=== PATIENT | female | born 1965 | race Asian ===

== ENCOUNTER 2017-09-29 10:21 | Inpatient (IN) | payer SELFPAY ==
[~2017-09-29] VITALS: Ht 149.9 cm; Wt 43.6 kg
[2017-09-29] VITALS (13 sets, daily range): BP systolic 136–163; BP diastolic 75–93; PULSE 68–96; RESP 15–20; TEMP 97.7–98.8; O2SAT 97–100
[2017-09-29] MEDS: SODIUM CHLOR 0.9% 1000 ML INJ 1,000 ML IV SCH ×2 (00:45→13:43)
[2017-09-29] MEDS ORDERED: [UNRECOGNIZED DRUG - CODE] PO (10:45)
[2017-09-29 10:53] LABS: AUTOMATED NEUTROPHIL # 3.7 TH/MM3 (1.8-7.7); BASOPHIL % 0.8 % (0.0-2.0); EOSINOPHIL % 0.4 % (0.0-4.0); HEMATOCRIT 43.2 % (35.0-46.0); HEMOGLOBIN 14.2 GM/DL (11.6-15.3); LYMPH % 25.3 % (9.0-44.0); LYMPHOCYTE # 1.4 TH/MM3 (1.0-4.8); MEAN CELL VOLUME 90.7 FL (80.0-100.0); MEAN CORPUSCULAR HEMOGLOBIN 29.9 PG (27.0-34.0); MEAN PLATELET VOLUME 7.1 FL (7.0-11.0); MONO % 4.7 % (0.0-8.0); MONOCYTE # 0.3 TH/MM3 (0-0.9); NEUT % 68.8 % (16.0-70.0); PLATELET COUNT 280 TH/MM3 (150-450); RED BLOOD COUNT 4.77 MIL/MM3 (4.00-5.30); RED CELL DISTRIBUTION WIDTH 12.7 % (11.6-17.2); WHITE BLOOD COUNT 5.4 TH/MM3 (4.0-11.0)
[2017-09-29 11:00] LABS: CHLORIDE 103 MEQ/L (98-107); SODIUM (NA) 139 MEQ/L (136-145)
[2017-09-29 11:03] LABS: BICARBONATE 28.4 MEQ/L (21.0-32.0); BLOOD UREA NITROGEN 12 MG/DL (7-18); CALCIUM 8.1 MG/DL (8.5-10.1); GLUCOSE,RANDOM 129 MG/DL (74-106)
[2017-09-29 11:07] LABS: CREATININE 0.64 MG/DL (0.50-1.00); GLOMERULAR FILTRATION RATE 97 ML/MIN (>89)
[2017-09-29 11:08] LABS: PROTHROMBIN TIME - PATIENT 10.2 SEC (9.8-11.6)
[2017-09-29 11:11] LABS: TROPONIN I LESS THAN 0.02 NG/ML (0.02-0.05)
--- NOTE | 2017-09-29 11:28 | PD ---
HPI Chief Complaint: Neuro Symptoms/ Deficits Time Seen by Provider: 10:31 Travel History International Travel<30 days: No Contact w/Intl Traveler<30days: No Traveled to known affect area: No History of Present Illness HPI 52-year-old female arrives with weakness in the left arm and left leg. She felt paresthesias in the left hand last night prior to going to sleep which was about 11 or 11:30. The patient then woke up at approximately 6 AM, 4 hours prior to ER arrival with a complaint of weakness in the left hand and left leg. She was able to ambulate however it was difficult due to the weakness in the leg. She reports a mild right sided headache which started yesterday and persisted into today. No loss of consciousness or visual complaint offered. No chest pain shortness breath nausea vomiting or dizziness. Patient denies history of CVA previously. She has a history of hypertension. She reports significant personal stress lately due to financial and family related concerns. PFSH Past Medical History Hypertension: Yes Tetanus Vaccination: < 5 Years Influenza Vaccination: Yes ?: Not Past Surgical History Cholecystectomy: Yes Social History Alcohol Use: Yes (SOCIAL) Tobacco Use: No Substance Use: No Allergies-Medications (Allergen,Severity, Reaction): Coded Allergies: Iodinated Contrast- Oral and IV Dye (Verified Allergy, Severe, Itching, ) Reported Meds & Prescriptions Reported Meds & Active Scripts Active Reported Exforge Hct (Wqvpuxfvnn-Nyhelyjnx-Lzysgyypuphcovmwszw) 10-320-25 Mg Tab 1 Tab PO DAILY Review of Systems Except as stated in HPI: all other systems reviewed are Neg General / Constitutional: No: Fever Neurologic: Positive: Weakness Physical Exam Narrative GENERAL: 52 yo F, WNWD, mild anxiety Vital Signs Date Time Temp Pulse Resp B/P (MAP) Pulse Ox O2 Delivery O2 Flow Rate FiO2 09/29/17 10:42 (114) 09/29/17 10:34 97.7 87 16 163/90 (114) 98 Room Air 09/29/17 10:34 98 Room Air 09/29/17 10:34 Room Air SKIN: Warm and dry. HEAD: Atraumatic. Normocephalic. EYES: Pupils equal and round. No scleral icterus. No injection or drainage. ENT: No nasal bleeding or discharge. Mucous membranes pink and moist. NECK: Trachea midline. No JVD. CARDIOVASCULAR: Rhythm is regular. The is about 90. RESPIRATORY: No accessory muscle use. Clear to auscultation. Breath sounds equal bilaterally. GASTROINTESTINAL: Abdomen soft, non-tender, nondistended. Hepatic and splenic margins not palpable. MUSCULOSKELETAL: Extremities without clubbing, cyanosis, or edema. No obvious deformities. NEUROLOGICAL: Awake and alert. Left upper extremity weakness 2 over 5. Left lower extremity 4 over 5. Perhaps trace facial droop is appreciable on the left side. Speech is normal. Memory and mentation are both normal. PSYCHIATRIC: Appropriate mood and affect; insight and judgment normal. Data Data Last Documented VS Vital Signs Date Time Temp Pulse Resp B/P (MAP) Pulse Ox O2 Delivery O2 Flow Rate FiO2 09/29/17 13:00 76 155/93 (113) 98 09/29/17 11:47 16 Room Air 09/29/17 10:34 97.7 Orders Orders Electrocardiogram (09/29/17 10:31) Prothrombin Time / Inr (Pt) (09/29/17 10:31) Act Partial Throm Time (Ptt) (09/29/17 10:31) Complete Blood Count With Diff (09/29/17 10:31) Basic Metabolic Panel (Bmp) (09/29/17 10:31) Creatine Kinase (Cpk) (09/29/17 10:31) Drug Screen, Random Urine (09/29/17 10:31) Troponin I (09/29/17 10:31) Urinalysis - C+S If Indicated (09/29/17 10:31) Ct Brain W/O Iv Contrast(Rout) (09/29/17 10:31) Cta Brain W Iv Contrast W 3d (09/29/17 10:31) Cta Neck W Iv Contrast W 3d (09/29/17 10:31) Chest, Single Ap (09/29/17 10:31) Ecg Monitoring (09/29/17 10:31) Iv Access Insert/Monitor (09/29/17 10:31) Oximetry (09/29/17 10:31) Admit Order (Ed Use Only) (09/29/17 ) Automated Cutting Machine Operator / Telemetry CHAITANYA.Q8H (09/29/17 13:15) Vital Signs (Adult) Q4H (09/29/17 13:15) Diet Npo (09/29/17 Lunch) Activity Bed Rest (09/29/17 13:15) Notify Dr: Other (09/29/17 13:15) Labs Laboratory Tests Test 09/29/17 10:35 09/29/17 12:35 White Blood Count 5.4 TH/MM3 Red Blood Count 4.77 MIL/MM3 Hemoglobin 14.2 GM/DL Hematocrit 43.2 % Mean Corpuscular Volume 90.7 FL Mean Corpuscular Hemoglobin 29.9 PG Mean Corpuscular Hemoglobin Concent 33.0 % Red Cell Distribution Width 12.7 % Platelet Count 280 TH/MM3 Mean Platelet Volume 7.1 FL Neutrophils (%) (Auto) 68.8 % Lymphocytes (%) (Auto) 25.3 % Monocytes (%) (Auto) 4.7 % Eosinophils (%) (Auto) 0.4 % Basophils (%) (Auto) 0.8 % Neutrophils # (Auto) 3.7 TH/MM3 Lymphocytes # (Auto) 1.4 TH/MM3 Monocytes # (Auto) 0.3 TH/MM3 Eosinophils # (Auto) 0.0 TH/MM3 Basophils # (Auto) 0.0 TH/MM3 CBC Comment DIFF FINAL Differential Comment Prothrombin Time 10.2 SEC Prothromb Time International Ratio 1.0 RATIO Activated Partial Thromboplast Time 26.2 SEC Blood Urea Nitrogen 12 MG/DL Creatinine 0.64 MG/DL Random Glucose 129 MG/DL Calcium Level 8.1 MG/DL Sodium Level 139 MEQ/L Potassium Level 3.1 MEQ/L Chloride Level 103 MEQ/L Carbon Dioxide Level 28.4 MEQ/L Anion Gap 8 MEQ/L Estimat Glomerular Filtration Rate 97 ML/MIN Total Creatine Kinase 88 U/L Troponin I LESS THAN 0.02 NG/ML Urine Collection Type CATH Urine Color YELLOW Urine Turbidity CLEAR Urine pH 7.5 Urine Specific [place] 1.010 Urine Protein NEG mg/dL Urine Glucose (UA) NEG mg/dL Urine Ketones NEG mg/dL Urine Occult Blood SMALL Urine Nitrite NEG Urine Bilirubin NEG Urine Urobilinogen 0.2 MG/DL Urine Leukocyte Esterase NEG Urine Squamous Epithelial Cells 0-5 /hpf Urine Amorphous Sediment FEW Microscopic Urinalysis Comment CULT NOT INDICATED Urine Opiates Screen NEG Urine Barbiturates Screen NEG Urine Amphetamines Screen NEG Urine Benzodiazepines Screen NEG Urine Cocaine Screen NEG Urine Cannabinoids Screen NEG MDM Medical Decision Making Medical Screen Exam Complete: Yes Emergency Medical Condition: Yes Medical Record Reviewed: Yes Differential Diagnosis CVA, TIA, syncope, complex migraine, Giovany's paralysis Narrative Course EKG: sinus, rate 83, right axis deviation CBC & BMP Diagram 09/29/17 10:35 Calcium Level 8.1 L Last Impressions Head CT 09/29/17 1031 Signed Impressions: Service Date/Time: Friday, September 29, 2017 11:36 - CONCLUSION: Multifocal parenchymal hemorrhages. Stanton Greenberg MD Chest X-Ray 09/29/17 1031 Signed Impressions: Service Date/Time: Friday, September 29, 2017 10:52 - CONCLUSION: No acute disease. Stanton Greenberg MD Multifocal cortical hemorrhages observed on CT. The patient will be admitted to the [facility]. Case d/w Dr Ellen Denise PA, who requests admission to [facility] at [facility]. Case d/w Dr Calhoun of the research associate quality control qc service The patient returned from her CT angiograms and complained of a cough and also worsening headache with coughing. Neurologic status remained unchanged. A very small dose of Dilaudid 0.5 along with Zofran was administered. Benadryl also administered. On exam at the time of the complaint of coughing the patient had a widely patent oropharynx and was without respiratory compromise. Critical Care Narrative Aggregate critical care time was 35 minutes. Time to perform other separately billable procedures was not included in the critical care time. My time did not include minutes spent treating any other patients simultaneously or on activities that did not directly contribute to the patient's treatment. The services I provided to this patient were to treat and/or prevent clinically significant deterioration that could result in: Permanent deficit, intracranial hemorrhage I provided critical care services requiring my management, as noted below: Chart data review, documentation time, medication orders and management, vital sign assessments/reviewing monitor data, ordering and reviewing lab tests, ordering and interpreting/reviewing x-rays and diagnostic studies, care of the patient and discussion of the patient with the admitting physicians. Diagnosis Primary Impression: Intracranial hemorrhage Additional Impressions: Cephalgia Qualified Codes: R51 - Headache Hemorrhagic stroke Admitting Information Admitting Physician Requests: Admit Mike Sauceda MD Sep 29, 2017 11:28
--- NOTE | 2017-09-29 11:54 | RADRPT ---
EXAM DATE/TIME: 09/29/2017 11:36 [facility] COMPARISON: No previous studies available for comparison. INDICATIONS : Left hand and leg weakness. Evaluate for cerebrovascular accident. RADIATION DOSE: 64.20 CTDIvol (mGy) MEDICAL HISTORY : None SURGICAL HISTORY : Hysterectomy. Cholecystectomy. ENCOUNTER: Initial ACUITY: 1 day PAIN SCALE: 0/10 LOCATION: cranial TECHNIQUE: Multiple contiguous axial images were obtained of the head. Using automated exposure control and adj ustment of the mA and/or kV according to patient size, radiation dose was kept as low as reasonably a chievable to obtain optimal diagnostic quality images. DICOM format image data is available electro nically for review and comparison. FINDINGS: There is a nearly 4 cm parenchymal hematoma in the right lentiform nucleus. A 7 mm hemorrhagic focus is present adjacent to the left caudate head. There is mild right lateral ventricular compression and hemispheric sulcal effacement on the right related to the larger hematoma. Minimal subfalcine shift is appreciated. There is minimal asymmetric effacement of the coronal cistern on the right. Elsewhere, there is patchy mild diminished attenuation in periventricular white matter which is likel y chronic and benign. The posterior fossa and brainstem are focally unremarkable. The extracranial structures are benign and intact. CONCLUSION: Multifocal parenchymal hemorrhages. Stanton Greenberg MD on September 29, 2017 at 11:46 Board Certified Radiologist. This report was verified electronically.
--- NOTE | 2017-09-29 12:07 | RADRPT ---
EXAM DATE/TIME: 09/29/2017 10:52 [facility] COMPARISON: No previous studies available for comparison. INDICATIONS : Left sided weakness. MEDICAL HISTORY : Hypertension. SURGICAL HISTORY : Cholecystectomy. ENCOUNTER: Initial ACUITY: 1 day PAIN SCORE: 0/10 LOCATION: Bilateral chest FINDINGS: A single view of the chest demonstrates the lungs to be symmetrically aerated without evidence of mas s, infiltrate or effusion. The cardiomediastinal contours are unremarkable. Osseous structures are intact. CONCLUSION: No acute disease. Stanton Greenberg MD on September 29, 2017 at 11:51 Board Certified Radiologist. This report was verified electronically.
[2017-09-29 12:56] LABS: BILIRUBIN, URINE NEG (NEG); BLOOD, URINE SMALL (NEG); GLUCOSE,URINE NEG (NEG); KETONE, URINE NEG (NEG); NITRITE,URINE NEG (NEG); PH, URINE 7.5 (5.0-8.5); URINE COLOR YELLOW (YELLW/STRAW); URINE LEUKOCYTE ESTERASE NEG (NEG)
[2017-09-29 13:30] LABS: AMORPHOUS SEDIMENT, URINE FEW; SQUAMOUS EPITHELIAL CELL URINE 0-5 /hpf (0-5)
[2017-09-29] MEDS ORDERED: IOHEXOL 350 MG/ML 10 ML VIAL (for RAD DIAG) IVCONTRAST ONE (13:37)
[2017-09-29] MEDS ORDERED: HYDROmorphone HCL PF 2 MG/ML VIAL IV PUSH ONE (13:45)
[2017-09-29] MEDS ORDERED: diphenhydrAMINE HCL 50 MG/ML VIAL IV PUSH ONE (13:45)
[2017-09-29] MEDS ORDERED: ONDANSETRON HCL 4 MG/2 ML VIAL IV PUSH ONE (13:45)
--- NOTE | 2017-09-29 14:25 | RADRPT ---
EXAM DATE/TIME: 09/29/2017 13:23 [facility] COMPARISON: CT BRAIN W/O CONTRAST, September 29, 2017, 11:36. INDICATIONS : Left sided weakness. Multifocal parenchymal hemorrhages. IV CONTRAST: 85 cc Omnipaque 350 (iohexol) IV ; Cumulative dose for multiple exams. RADIATION DOSE: 42.18 CTDIvol (mGy) ; Combined studies MEDICAL HISTORY : None SURGICAL HISTORY : Hysterectomy. Cholecystectomy. ENCOUNTER: Initial ACUITY: 1 day PAIN SCALE: 0/10 LOCATION: cranial Patient experienced a contrast reaction consisting of itching . Patient was treated with diphenhydramine (Benadryl) . TECHNIQUE: Volumetric scanning was performed using a multi-row detector CT scanner. The data was post processed with a variety of visualization algorithms including full volume maximum intensity projection, multi -planar sliding thin slab reformation, curved planar reformation, and surface rendering techniques. Using automated exposure control and adjustment of the mA and/or kV according to patient size, radiat ion dose was kept as low as reasonably achievable to obtain optimal diagnostic quality images. DICO M format image data is available electronically for review and comparison. FINDINGS: There is a cluster of coalescing veins in the left frontal region with common drainage to the left in ternal cerebral vein consistent with developmental venous anomaly. The appearance is most suggestive of venous angioma, however the location does correlate with a small focus of presumed hemorrhage mariah cent to the left caudate head. I do not see an associated enlarged artery or aneurysmal dilatation of vessels in this region. The vasculature elsewhere is normal. The [place] vessels are intact and unremarkable with no evidence of major vessel occlusion or stenosis. No aneurysm is appreciated. 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 No suspicious finding s on the right. Stanton Greenberg MD on September 29, 2017 at 14:15 Board Certified Radiologist. This report was verified electronically.
--- NOTE | 2017-09-29 14:42 | RADRPT ---
EXAM DATE/TIME: 09/29/2017 13:23 [facility] COMPARISON: No previous studies available for comparison. INDICATIONS : Left sided weakness. Multifocal parenchymal hemorrhages. IV CONTRAST: 85 cc Omnipaque 350 (iohexol) IV ; Cumulative dose for multiple exams. RADIATION DOSE: 42.18 CTDIvol (mGy) ; Combined studies MEDICAL HISTORY : None SURGICAL HISTORY : Hysterectomy. Cholecystectomy. ENCOUNTER: Initial ACUITY: 1 day PAIN SCALE: 7/10 LOCATION: neck Elevated flow velocities and ICA/CCA ratios have been found to correlate with increased degrees of vessel stenosis, calculated as percentage of diameter relative to a normal segment of distal ICA/CCA. Patient experienced a contrast reaction consisting of itching . Patient was treated with diphenhydramine (Benadryl) . TECHNIQUE: Volumetric scanning was performed using a multirow detector CT scanner. The data was post processed with a variety of visualization algorithms including full-volume maximum intensity projection, multip lanar sliding thin-slab reformation, curved-planar reformation, and surface-rendering techniques. Us ing automated exposure control and adjustment of the mA and/or kV according to patient size, radiatio n dose was kept as low as reasonably achievable to obtain optimal diagnostic quality images. DICOM f ormat image data is available electronically for review and comparison. FINDINGS: AORTIC ARCH: There is a three-vessel origin of the great vessels from the aorta. No evidence of ostial narrowing. RIGHT CAROTID: The common carotid artery is intact. The carotid bulb has a normal configuration without ulceration o r narrowing. The internal carotid artery lumen is smooth without stenosis. The external carotid kris ry is intact. LEFT CAROTID: The common carotid artery is intact. The carotid bulb has a normal configuration without ulceration or narrowing. The internal carotid artery lumen is smooth without stenosis. The external carotid ar luis is intact. VERTEBRALS: The vertebral arteries are patent bilaterally, left side dominant. No stenotic lesions are seen. CONCLUSION: Negative study Stanton Greenberg MD on September 29, 2017 at 14:38 Board Certified Radiologist. This report was verified electronically.
--- NOTE | 2017-09-29 16:37 | PD.CONS ---
[facility] Service neurosurg Consult Requested By [facility] Reason for Consult [facility] Primary Care Physician No Primary Care Physician History of Present Illness This is a 52-year-old lady with history of hypertension. She has apparently been off her medications for the last 2 months. She presented to [place] emergency department complaining of weakness over the left hand and left leg. She started feeling some numbness over the left upper extremity yesterday night before going to bed, and this morning upon awakening she felt increasing weakness over the left side, dropping things from her left hand and and having difficulty walking due to left leg weakness. In addition she had headaches with sensation of pressure and nauseas but no vomiting. She denies any prior episodes. She denies blurry vision, no photophobia, no vomiting. No loss of consciousness. No seizure activity. no tongue bitting. No incontinence of stool or urine. No prior history of stroke. In emergency department she underwent a CT head that showed multifocal parenchymal hemorrhages with the largest hematoma approximately 4 cm in the right basal ganglia.She was transferred to [facility] for neurosurgery evaluation. Left- sided weakness improving Review of Systems Constitutional: DENIES: Fever, Weight gain, Weight loss, Chills, Dizziness Eyes: DENIES: Blurred vision, Diplopia, Vision loss, Photosensitivity, Double Vision Ears, nose, mouth, throat: DENIES: Tinnitus, Vertigo, Throat pain Respiratory: DENIES: Cough, Wheezing, Shortness of breath Cardiovascular: DENIES: Chest pain, Palpitations, Syncope, Lower Extremity Edema Gastrointestinal: COMPLAINS OF: Nausea, DENIES: Abdominal pain, Vomiting Genitourinary: DENIES: Urinary frequency, Hematuria, Dysuria Hematologic/lymphatic: DENIES: Bruising Neurologic: COMPLAINS OF: Headache, Localized weakness, DENIES: Seizures Past Family Social History Allergies: Coded Allergies: Iodinated Contrast- Oral and IV Dye (Verified Allergy, Severe, Itching, ) Past Medical History Hypertension Past Surgical History Cholecystectomy Reported Medications Exforge Hct (Jxbhmzvxbk-Iycqhjsus-Hbuyzyuyxklqkbjxufi) 10-320-25 Mg Tab 1 Tab PO DAILY Active Ordered Medications Current Medications Diphenhydramine HCl (Benadryl Inj) 25 mg ONCE ONCE IV PUSH Last administered on 09/29/17at 13:38; Start 09/29/17 at 13:45; Stop 09/29/17 at 13:46; Status DC Iohexol (Omnipaque 350 Inj) 85 ml STK-MED ONCE IVCONTRAST Last administered on 09/29/17at 13:37; Start 09/29/17 at 13:37; Stop 09/29/17 at 13:38; Status DC Hydromorphone HCl (Dilaudid Pf Inj) 0.5 mg ONCE ONCE IV PUSH Last administered on 09/29/17at 13:44; Start 09/29/17 at 13:45; Stop 09/29/17 at 13:46 ; Status DC Ondansetron HCl (Zofran Inj) 4 mg ONCE ONCE IV PUSH Last administered on at 13:44; Start 09/29/17 at 13:45; Stop 09/29/17 at 13:46; Status DC Sodium Chloride 1,000 ml @ 100 mls/hr Q10H IV Last administered on 09/29/17at 13:43; Start 09/29/17 at 13:45 Acetaminophen (Tylenol) 650 mg Q6H PRN PO PAIN 1-5 AND/OR FEVER >100.4F; Start 09/29/17 at 16:45 Oxycodone/ Acetaminophen (Percocet 5-325 Mg) 1 tab Q4H PRN PO PAIN SCALE 5 TO 10; Start 09/29/17 at 16:45 Famotidine (Pepcid) 20 mg Q12HR PO ; Start 09/29/17 at 21:00 Albuterol/ Ipratropium (Duoneb Neb) 1 ampule Q4HR NEB PRN INH WHEEZING; Start 09/29/17 at 16:45 Miscellaneous Information 1 Q361D XX ; Start 09/29/17 at 16:45 Chlorhexidine Gluconate (Chlorhexidine 2% Cloth) 3 pack Taper DAILY@04 TOP ; Start 09/30/17 at 04:00; Stop 09/26/18 at 03:59 Chlorhexidine Gluconate (Chlorhexidine 2% Cloth) 3 pack UNSCH PRN TOP HYGIENIC CARE; Start 09/29/17 at 16:45 Senna/Docusate Sodium ([place]ula-Colace) 1 tab BID PO ; Start 09/29/17 at 21:00 Magnesium Hydroxide (Milk Of Magndaniel Liq) 30 ml Q12H PRN PO Mild constipation ; Start 09/29/17 at 16:45 Potassium Chloride 100 ml @ 50 mls/hr Q2H PRN IV For Potassium 2.8 - 3.2 mEq/L ; Start 09/29/17 at 16:45 Potassium Chloride 100 ml @ 50 mls/hr Q2H PRN IV For Potassium 2.8 - 3.2 mEq/L ; Start 09/29/17 at 16:45 Potassium Bicarb/ Potassium Chloride (K-Lyte Cl Eff) 50 meq UNSCH PRN PO For Potassium 3.3 - 3.5 mEq/L; Start 09/29/17 at 16:45 Potassium Chloride 100 ml @ 25 mls/hr UNSCH PRN IV For Potassium 3.3 - 3.5 mEq /L; Start 09/29/17 at 16:45 Potassium Chloride 100 ml @ 50 mls/hr Q2H PRN IV For Potassium 3.3 - 3.5 mEq/L ; Start 09/29/17 at 16:45 Magnesium Sulfate 4 gm/Sodium Chloride 100 ml @ 50 mls/hr UNSCH PRN IV For Magnesium 0.9 - 1.1 mg/dL; Start 09/29/17 at 16:45 Magnesium Oxide (Mag-Ox) 800 mg UNSCH PRN PO For Magnesium 1.2 - 1.6 mg/dL; Start 09/29/17 at 16:45 Magnesium Sulfate 2 gm/Sodium Chloride 100 ml @ 50 mls/hr UNSCH PRN IV For Magnesium 1.2 - 1.6 mg/dL; Start 09/29/17 at 16:45 Potassium Phosphate (K-Phos) 2,000 mg Q4H PRN PO For Phosphorus < 2.5 mg/dL; Start 09/29/17 at 16:45 Sodium Phosphate 30 mmol/Sodium Chloride 250 ml @ 42 mls/hr UNSCH PRN IV For Phosphorus < 2.5 mg/dL; Start 09/29/17 at 16:45 Potassium Phosphate (K-Phos) 2,000 mg UNSCH PRN PO/TUBE SEE LABEL COMMENTS; Start 09/29/17 at 16:45 Potassium Phosphate 30 mmol/ Sodium Chloride 260 ml @ 42 mls/hr UNSCH PRN IV SEE LABEL COMMENTS; Start 09/29/17 at 16:45 Family History Father and siblings with hypertension No family history of cancer or CAD Social History No tobacco, no drugs, occasional 1 glass of wine Physical Exam Vital Signs Vital Signs Date Time Temp Pulse Resp B/P (MAP) Pulse Ox O2 Delivery O2 Flow Rate FiO2 09/29/17 15:34 89 16 136/75 (95) 98 09/29/17 14:29 80 16 147/79 (101) 97 Room Air 09/29/17 13:56 Room Air 09/29/17 13:50 90 16 154/88 (110) 97 Room Air 09/29/17 13:00 76 155/93 (113) 98 09/29/17 11:47 77 16 154/84 (107) 99 Room Air 09/29/17 10:42 (114) 09/29/17 10:34 97.7 87 16 163/90 (114) 98 Room Air 09/29/17 10:34 98 Room Air 09/29/17 10:34 Room Air Physical Exam The patient is alert, awake and oriented to time, place and person. Speech is fluent. Cranial nerve examination: pupils to be equal, round and reactive to light. Extra-ocular movements are intact. Facial motor and sensory function are normal and symmetrical. Gross hearing appears intact. Sternocleidomastoid and trapezius muscles are symmetrical. Other cranial nerves are intact. Neck is soft and supple with a good range of motion without pain. Muscle strength is normal in all muscle groups of her right upper and lower extremities with mild left hemiparesis. Sensory examination is intact to light touch and pin prick in both the upper and lower extremities. Deep tendon reflexes are symmetrical in both upper and lower extremities. There is a bilateral plantar flexion response. Cerebellar examination is unremarkable, without deficits. Heart: regular rate, rhythm Resp: clear, no wheezes, nonlabored breathing Skin: warm, dry, no cyanosis or erythema Laboratory Laboratory Tests Test 09/29/17 10:35 09/29/17 12:35 White Blood Count 5.4 Red Blood Count 4.77 Hemoglobin 14.2 Hematocrit 43.2 Mean Corpuscular Volume 90.7 Mean Corpuscular Hemoglobin 29.9 Mean Corpuscular Hemoglobin Concent 33.0 Red Cell Distribution Width 12.7 Platelet Count 280 Mean Platelet Volume 7.1 Neutrophils (%) (Auto) 68.8 Lymphocytes (%) (Auto) 25.3 Monocytes (%) (Auto) 4.7 Eosinophils (%) (Auto) 0.4 Basophils (%) (Auto) 0.8 Neutrophils # (Auto) 3.7 Lymphocytes # (Auto) 1.4 Monocytes # (Auto) 0.3 Eosinophils # (Auto) 0.0 Basophils # (Auto) 0.0 CBC Comment DIFF FINAL Differential Comment Prothrombin Time 10.2 Prothromb Time International Ratio 1.0 Activated Partial Thromboplast Time 26.2 Blood Urea Nitrogen 12 Creatinine 0.64 Random Glucose 129 Calcium Level 8.1 Sodium Level 139 Potassium Level 3.1 Chloride Level 103 Carbon Dioxide Level 28.4 Anion Gap 8 Estimat Glomerular Filtration Rate 97 Total Creatine Kinase 88 Troponin I LESS THAN 0.02 Urine Collection Type CATH Urine Color YELLOW Urine Turbidity CLEAR Urine pH 7.5 Urine Specific [place] 1.010 Urine Protein NEG Urine Glucose (UA) NEG Urine Ketones NEG Urine Occult Blood SMALL Urine Nitrite NEG Urine Bilirubin NEG Urine Urobilinogen 0.2 Urine Leukocyte Esterase NEG Urine Squamous Epithelial Cells 0-5 Urine Amorphous Sediment FEW Microscopic Urinalysis Comment CULT NOT INDICATED Urine Opiates Screen NEG Urine Barbiturates Screen NEG Urine Amphetamines Screen NEG Urine Benzodiazepines Screen NEG Urine Cocaine Screen NEG Urine Cannabinoids Screen NEG Result Diagram: 09/29/17 1035 09/29/17 1035 Imaging Last 48 hours Impressions Neck CTA 09/29/17 1031 Signed Impressions: Service Date/Time: Friday, September 29, 2017 13:23 - CONCLUSION: Negative study Stanton Greenberg MD Head CTA 09/29/17 1031 Signed Impressions: Service Date/Time: Friday, September 29, 2017 13:23 - CONCLUSION: 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 No suspicious findings on the right. Stanton Greenberg MD Head CT 09/29/17 1031 Signed Impressions: Service Date/Time: Friday, September 29, 2017 11:36 - CONCLUSION: Multifocal parenchymal hemorrhages. Stanton Greenberg MD Chest X-Ray 09/29/17 1031 Signed Impressions: Service Date/Time: Friday, September 29, 2017 10:52 - CONCLUSION: No acute disease. Stanton Greenberg MD Attending Statement I reviewed her radiological studies Neck CTA 09/29/171030 Signed Impressions: Service Date/Time: Friday, September 29, 2017 13:23 - CONCLUSION: Negative study Stanton Greenberg MD Head CTA 09/29/171030 Signed Impressions: Service Date/Time: Friday, September 29, 2017 13:23 - CONCLUSION: 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 No suspicious findings on the right. Stanton Greenberg MD Head CT 09/29/171030 Signed Impressions: Service Date/Time: Friday, September 29, 2017 11:36 - CONCLUSION: Multifocal parenchymal hemorrhages. Stanton Greenberg MD Chest X-Ray 09/29/171030 Signed Impressions: Service Date/Time: Friday, September 29, 2017 10:52 - CONCLUSION: No acute disease. Stanton Greenberg MD Continue neuro checks in a serial fashion. A follow-up CT of the head will be obtained in 24 hours. Hypertension - off meds over the last 2 months. Strict blood pressure control Hypokalemia. repolaced. Follow up BMP Pulmonary.. Continue aggressive pulmonary toilette, nasotracheal suction, and breathing treatments with nebulizers. Nutrition. NPO Renal. monitor closely urine output, BUN and creatinine Endocrine. Monitor serial Acu checks and SSI as needed in detail ID monitor for signs of infection Protonix for stress ulcer prophylaxis Angelito hose and SCD's for DVT prophylaxis Caprini VTE Risk Assessment Caprini VTE Risk Assessment: Mod/High Risk (score >= 2) VTE Pharm Contraindication: Hemorrhage Caprini Risk Assessment Model Point Value = 1 Point Value = 2 Point Value = 3 Point Value = 5 Age 41-60 Minor surgery BMI > 25 kg/m2 Swollen legs Varicose veins or History of unexplained or recurrent spontaneous Oral contraceptives or hormone replacement Sepsis (< 1 month) Serious lung disease, including pneumonia (< 1 month) Abnormal pulmonary function Acute myocardial infarction Congestive heart failure (< 1 month) History of inflammatory bowel disease Medical patient at bed rest Age 61-74 Arthroscopic surgery Major open surgery (> 45 min) Laparoscopic surgery (> 45 min) Malignancy Confined to bed (> 72 hours) Immobilizing plaster cast Central venous access Age >= 75 History of VTE Family history of VTE Factor V Leiden Prothrombin [id number] Lupus anticoagulant Anticardiolipin antibodies Elevated serum homocysteine Heparin-induced thrombocytopenia Other congenital or acquired thrombophilia Stroke (< 1 month) Elective arthroplasty Hip, pelvis, or leg fracture Acute spinal cord injury (< 1 month) Prophylaxis Regimen Total Risk Factor Score Risk Level Prophylaxis Regimen 0-1 Low Early ambulation 2 Moderate Order ONE of the following: *Sequential Compression Device (SCD) *Heparin 5000 units SQ BID 3-4 Higher Order ONE of the following medications: *Heparin 5000 units SQ TID *Enoxaparin/Lovenox 40 mg SQ daily (WT < 150 kg, CrCl > 30 mL/min) *Enoxaparin/Lovenox 30 mg SQ daily (WT < 150 kg, CrCl > 10-29 mL/min) *Enoxaparin/Lovenox 30 mg SQ BID (WT < 150 kg, CrCl > 30 mL/min) AND/OR *Sequential Compression Device (SCD) 5 or more Highest Order ONE of the following medications: *Heparin 5000 units SQ TID (Preferred with Epidurals) *Enoxaparin/Lovenox 40 mg SQ daily (WT < 150 kg, CrCl > 30 mL/min) *Enoxaparin/Lovenox 30 mg SQ daily (WT < 150 kg, CrCl > 10-29 mL/min) *Enoxaparin/Lovenox 30 mg SQ BID (WT < 150 kg, CrCl > 30 mL/min) AND *Sequential Compression Device (SCD) Harshil Pang MD Sep 29, 2017 16:37
[2017-09-29] MEDS ORDERED: POTASSIUM PHOSPHATE MONOBASIC 500 MG TAB PO/TUBE PRN (16:45)
[2017-09-29] MEDS ORDERED: MISCELLANEOUS NURSING INFORMATION XX SCH (16:45)
[2017-09-29] MEDS ORDERED: POTASSIUM PHOSPHATE MONOBASIC 500 MG TAB PO PRN (16:45)
[2017-09-29] MEDS ORDERED: MAGNESIUM OXIDE 400 MG TAB PO PRN (16:45)
[2017-09-29] MEDS ORDERED: MAGNESIUM SULFATE INJ 2 GM in SODIUM CHLORIDE 0.9% INJ 96 ML IV PRN (16:45)
[2017-09-29] MEDS ORDERED: SODIUM PHOSPHATE INJ 30 MMOL in SODIUM CHLOR 0.9% 250 ML INJ 240 ML IV PRN (16:45)
[2017-09-29] MEDS ORDERED: POTASSIUM CHLOR 40 MEQ PREMIX 100 ML IV PRN ×2 (16:45)
[2017-09-29] MEDS ORDERED: POTASSIUM PHOSPHATE INJ 30 MMOL in SODIUM CHLOR 0.9% 250 ML INJ 250 ML IV PRN (16:45)
[2017-09-29] MEDS ORDERED: CHLORHEXIDINE GLUCONATE 2 % 1 PACK (2 CLOTHS) TOP PRN (16:45)
[2017-09-29] MEDS ORDERED: RESP: ALBUTEROL 2.5 MG/IPRATROPIUM 0.5 MG NEB (PRN) INH (16:45)
[2017-09-29] MEDS ORDERED: POTASSIUM CHLOR 20 MEQ PREMIX 100 ML IV PRN (16:45)
[2017-09-29] MEDS ORDERED: MAGNESIUM HYDROXIDE SUSP 30 ML CUP PO PRN (16:45)
[2017-09-29] MEDS ORDERED: POTASSIUM CHLORIDE 25 MEQ EFFERVESCENT TAB PO PRN (16:45)
[2017-09-29] MEDS ORDERED: MAGNESIUM SULFATE INJ 4 GM in SODIUM CHLORIDE 0.9% INJ 92 ML IV PRN (16:45)
--- NOTE | 2017-09-29 16:48 | HHI.HP ---
HPI Service Critical Care Medicine Primary Care Physician No Primary Care Physician Admission Diagnosis Multifocal Intracranial Hemorrhage; Hemorrhagic Stroke Diagnosis: Chief Complaint: Left-sided weakness and headache Travel History International Travel<30 Days: No Contact w/Intl Traveler <30 Da: No Traveled to Known Affected Are: No History of Present Illness 52-year-old lady with history of hypertension off meds for the last 2 months, now presents to [place] emergency department complaining of weakness over the left hand and left leg. Per patient, she started feeling some numbness over the left upper extremity yesterday night before going to bed, and this morning upon awakening she felt increasing weakness over the left side, dropping things from her left hand and and having difficulty walking due to left leg weakness. In addition patient also complained of headache and some nausea but no vomiting. She denies any prior episodes, no blurry vision, no photophobia, no vomiting. No loss of consciousness. No prior history of stroke. In emergency department she underwent a CT head that showed multifocal parenchymal hemorrhages with the largest hematoma approximately 4 cm in the right hemisphere. Patient was transferred to [facility] for further care and to be evaluated by neurosurgery. She is currently resting in bed, headache is improved, left-sided weakness improved as well. Review of Systems Constitutional: DENIES: Fever, Weight gain, Weight loss, Chills, Dizziness Eyes: DENIES: Blurred vision, Diplopia, Vision loss, Photosensitivity, Double Vision Ears, nose, mouth, throat: DENIES: Tinnitus, Vertigo, Throat pain Respiratory: DENIES: Cough, Wheezing, Shortness of breath Cardiovascular: DENIES: Chest pain, Palpitations, Syncope, Lower Extremity Edema Gastrointestinal: COMPLAINS OF: Nausea, DENIES: Abdominal pain, Vomiting Genitourinary: DENIES: Urinary frequency, Hematuria, Dysuria Hematologic/lymphatic: DENIES: Bruising Neurologic: COMPLAINS OF: Headache, Localized weakness, DENIES: Seizures Past Family Social History Allergies: Coded Allergies: Iodinated Contrast- Oral and IV Dye (Verified Allergy, Severe, Itching, ) Past Medical History Hypertension Past Surgical History Cholecystectomy Reported Medications Reported Meds & Active Scripts Active Reported Exforge Hct (Osyjsdtqus-Buucobolj-Yujnwwosqgbxxwiqlmp) 10-320-25 Mg Tab 1 Tab PO DAILY Active Ordered Medications Current Medications Medications (Trade) Dose Ordered Sig/Jovany Route Start Time Stop Time Status Last Admin Sodium Chloride 1,000 ml @ 100 mls/hr Q10H IV 09/29/17 13:45 09/29/17 13:43 (Tylenol) 650 mg Q6H PRN PO 09/29/17 16:45 UNV (Percocet 5-325 Mg) 1 tab Q4H PRN PO 09/29/17 16:45 UNV (Pepcid) 20 mg Q12HR PO 09/29/17 21:00 UNV (Duoneb Neb) 1 ampule Q4HR NEB PRN INH 09/29/17 16:45 UNV Miscellaneous Information 1 Q361D XX 09/29/17 16:45 UNV (Chlorhexidine 2% Cloth) 3 pack Taper DAILY@04 TOP 09/30/17 04:00 09/26/18 03:59 UNV (Chlorhexidine 2% Cloth) 3 pack UNSCH PRN TOP 09/29/17 16:45 UNV ([place]-Colace) 1 tab BID PO 09/29/17 21:00 UNV (Milk Of Magnesia Liq) 30 ml Q12H PRN PO 09/29/17 16:45 UNV Potassium Chloride 100 ml @ 50 mls/hr Q2H PRN IV 09/29/17 16:45 UNV Potassium Chloride 100 ml @ 50 mls/hr Q2H PRN IV 09/29/17 16:45 UNV (K-Lyte Cl Eff) 50 meq UNSCH PRN PO 09/29/17 16:45 UNV Potassium Chloride 100 ml @ 25 mls/hr UNSCH PRN IV 09/29/17 16:45 UNV Potassium Chloride 100 ml @ 50 mls/hr Q2H PRN IV 09/29/17 16:45 UNV Magnesium Sulfate 4 gm/Sodium Chloride 100 ml @ 50 mls/hr UNSCH PRN IV 09/29/17 16:45 UNV Family History Father and siblings with hypertension No family history of cancer or CAD Social History No tobacco, no drugs, occasional 1 glass of wine Physical Exam Vital Signs Vital Signs Date Time Temp Pulse Resp B/P (MAP) Pulse Ox O2 Delivery O2 Flow Rate FiO2 09/29/17 16:40 98.0 96 20 146/92 (110) 100 09/29/17 15:34 89 16 136/75 (95) 98 09/29/17 14:29 80 16 147/79 (101) 97 Room Air 09/29/17 13:56 Room Air 09/29/17 13:50 90 16 154/88 (110) 97 Room Air 09/29/17 13:00 76 155/93 (113) 98 09/29/17 11:47 77 16 154/84 (107) 99 Room Air 09/29/17 10:42 (114) 09/29/17 10:34 97.7 87 16 163/90 (114) 98 Room Air 09/29/17 10:34 98 Room Air 09/29/17 10:34 Room Air Physical Exam General - middle-aged lady, awake, in no distress HEENT - pupils equal, reactive, sclerae anicteric, neck supple, no nuchal rigidity, neck veins not distended, no carotid bruit CV - regular S1, S2, no murmurs Chest - clear b/l, good air entry, no wheezes Abdomen - soft, non-tender, non-distended, BS present, no hepatomegaly, no splenomegaly Skin - no rashes, no cyanosis Extremities - warm and well perfused, no edema, + peripheral pulses, no clubbing Neuro -awake, alert, oriented 3, pupils are equal and reactive, EOMI, smile is symmetric, tongue is midline, shrugs shoulders, + pronator drift over left arm, motor 5/5 overall extremities except 4/5 left upper extremity, sensation is intact Laboratory Laboratory Tests Test 09/29/17 10:35 09/29/17 12:35 White Blood Count 5.4 Red Blood Count 4.77 Hemoglobin 14.2 Hematocrit 43.2 Mean Corpuscular Volume 90.7 Mean Corpuscular Hemoglobin 29.9 Mean Corpuscular Hemoglobin Concent 33.0 Red Cell Distribution Width 12.7 Platelet Count 280 Mean Platelet Volume 7.1 Neutrophils (%) (Auto) 68.8 Lymphocytes (%) (Auto) 25.3 Monocytes (%) (Auto) 4.7 Eosinophils (%) (Auto) 0.4 Basophils (%) (Auto) 0.8 Neutrophils # (Auto) 3.7 Lymphocytes # (Auto) 1.4 Monocytes # (Auto) 0.3 Eosinophils # (Auto) 0.0 Basophils # (Auto) 0.0 CBC Comment DIFF FINAL Differential Comment Prothrombin Time 10.2 Prothromb Time International Ratio 1.0 Activated Partial Thromboplast Time 26.2 Blood Urea Nitrogen 12 Creatinine 0.64 Random Glucose 129 Calcium Level 8.1 Sodium Level 139 Potassium Level 3.1 Chloride Level 103 Carbon Dioxide Level 28.4 Anion Gap 8 Estimat Glomerular Filtration Rate 97 Total Creatine Kinase 88 Troponin I LESS THAN 0.02 Urine Collection Type CATH Urine Color YELLOW Urine Turbidity CLEAR Urine pH 7.5 Urine Specific [place] 1.010 Urine Protein NEG Urine Glucose (UA) NEG Urine Ketones NEG Urine Occult Blood SMALL Urine Nitrite NEG Urine Bilirubin NEG Urine Urobilinogen 0.2 Urine Leukocyte Esterase NEG Urine Squamous Epithelial Cells 0-5 Urine Amorphous Sediment FEW Microscopic Urinalysis Comment CULT NOT INDICATED Urine Opiates Screen NEG Urine Barbiturates Screen NEG Urine Amphetamines Screen NEG Urine Benzodiazepines Screen NEG Urine Cocaine Screen NEG Urine Cannabinoids Screen NEG Result Diagram: 09/29/17 1035 09/29/17 1035 Imaging Last Impressions Neck CTA 09/29/17 1031 Signed Impressions: Service Date/Time: Friday, September 29, 2017 13:23 - CONCLUSION: Negative study Stanton Greenberg MD Head CTA 09/29/17 1031 Signed Impressions: Service Date/Time: Friday, September 29, 2017 13:23 - CONCLUSION: 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 No suspicious findings on the right. Stanton Greenberg MD Head CT 09/29/17 1031 Signed Impressions: Service Date/Time: Friday, September 29, 2017 11:36 - CONCLUSION: Multifocal parenchymal hemorrhages. Stanton Greenberg MD Chest X-Ray 09/29/17 1031 Signed Impressions: Service Date/Time: Friday, September 29, 2017 10:52 - CONCLUSION: No acute disease. Stanton Greenberg MD Capziggyi VTE Risk Assessment Caprini VTE Risk Assessment: Mod/High Risk (score >= 2) VTE Pharm Contraindication: Hemorrhage Caprini Risk Assessment Model Point Value = 1 Point Value = 2 Point Value = 3 Point Value = 5 Age 41-60 Minor surgery BMI > 25 kg/m2 Swollen legs Varicose veins or History of unexplained or recurrent spontaneous Oral contraceptives or hormone replacement Sepsis (< 1 month) Serious lung disease, including pneumonia (< 1 month) Abnormal pulmonary function Acute myocardial infarction Congestive heart failure (< 1 month) History of inflammatory bowel disease Medical patient at bed rest Age 61-74 Arthroscopic surgery Major open surgery (> 45 min) Laparoscopic surgery (> 45 min) Malignancy Confined to bed (> 72 hours) Immobilizing plaster cast Central venous access Age >= 75 History of VTE Family history of VTE Factor V Leiden Prothrombin [id number] Lupus anticoagulant Anticardiolipin antibodies Elevated serum homocysteine Heparin-induced thrombocytopenia Other congenital or acquired thrombophilia Stroke (< 1 month) Elective arthroplasty Hip, pelvis, or leg fracture Acute spinal cord injury (< 1 month) Prophylaxis Regimen Total Risk Factor Score Risk Level Prophylaxis Regimen 0-1 Low Early ambulation 2 Moderate Order ONE of the following: *Sequential Compression Device (SCD) *Heparin 5000 units SQ BID 3-4 Higher Order ONE of the following medications: *Heparin 5000 units SQ TID *Enoxaparin/Lovenox 40 mg SQ daily (WT < 150 kg, CrCl > 30 mL/min) *Enoxaparin/Lovenox 30 mg SQ daily (WT < 150 kg, CrCl > 10-29 mL/min) *Enoxaparin/Lovenox 30 mg SQ BID (WT < 150 kg, CrCl > 30 mL/min) AND/OR *Sequential Compression Device (SCD) 5 or more Highest Order ONE of the following medications: *Heparin 5000 units SQ TID (Preferred with Epidurals) *Enoxaparin/Lovenox 40 mg SQ daily (WT < 150 kg, CrCl > 30 mL/min) *Enoxaparin/Lovenox 30 mg SQ daily (WT < 150 kg, CrCl > 10-29 mL/min) *Enoxaparin/Lovenox 30 mg SQ BID (WT < 150 kg, CrCl > 30 mL/min) AND *Sequential Compression Device (SCD) Assessment and Plan Assessment and Plan 1. Multifocal spontaneous intraparenchymal hemorrhages, with the largest in the right basal ganglia 2. Hypertension - off meds over the last 2 months 3. Hypokalemia 1. Neurosurgical evaluation 2. Neurochecks 3. Keep head of the bed elevated, maintain normothermia, avoid agitation 4. N.p.o. for now 5. Keep blood pressure less than 160/90 6. Avoid antiplatelets 7. Replete potassium 8. Stat CT head with any change in mental status 9. Isotonic fluid 10. GI prophylaxis 11. DVT prophylaxis with SCDs. Will hold pharmacologic DVT prophylaxis due to hemorrhage Cirilo Calhoun MD Sep 29, 2017 16:48
[2017-09-29] MEDS: POTASSIUM CHLOR 20 MEQ PREMIX 100 ML IV PRN ×4 (17:13→23:45)
--- NOTE | 2017-09-29 20:01 | EKG ---
Date Performed: 09/29/2017 Time Performed: 10:40:52 PTAGE: 52 years EKG: Sinus rhythm BORDERLINE RIGHT AXIS DEVIATION SEPTAL MYOCARDIAL INFARCTION ABNORMAL ECG NO PREVIOUS TRACING DOCTOR: Uriel Riggs Interpretating Date/Time 09/29/2017 20:00:26
[2017-09-29] MEDS: FAMOTIDINE 20 MG TAB PO SCH (20:13)
[2017-09-29] MEDS: DOCUSATE SODIUM 50 MG/SENNA 8.6 MG TAB PO SCH (20:13)
[2017-09-30] VITALS (12 sets, daily range): BP systolic 117–155; BP diastolic 63–85; PULSE 58–111; RESP 14–23; TEMP 98–98.9; O2SAT 97–100
[2017-09-30] MEDS ORDERED: hydrALAZINE HCL 20 MG/ML VIAL IV PUSH PRN (00:15)
[2017-09-30] MEDS: CHLORHEXIDINE GLUCONATE 2 % 1 PACK (2 CLOTHS) TOP SCH (04:00)
[2017-09-30 04:07] LABS: AUTOMATED NEUTROPHIL # 2.9 TH/MM3 (1.8-7.7); BASOPHIL # 0.1 TH/MM3 (0-0.2); BASOPHIL % 1.1 % (0.0-2.0); EOSINOPHIL # 0.1 TH/MM3 (0-0.4); EOSINOPHIL % 1.5 % (0.0-4.0); HEMATOCRIT 41.2 % (35.0-46.0); LYMPH % 27.3 % (9.0-44.0); LYMPHOCYTE # 1.2 TH/MM3 (1.0-4.8); MEAN CELL VOLUME 93.1 FL (80.0-100.0); MEAN CORPUSCULAR HEMOGLOBIN 31.6 PG (27.0-34.0); MEAN PLATELET VOLUME 7.3 FL (7.0-11.0); MONO % 5.3 % (0.0-8.0); MONOCYTE # 0.2 TH/MM3 (0-0.9); NEUT % 64.8 % (16.0-70.0); PLATELET COUNT 265 TH/MM3 (150-450); RED BLOOD COUNT 4.43 MIL/MM3 (4.00-5.30); RED CELL DISTRIBUTION WIDTH 13.7 % (11.6-17.2); WHITE BLOOD COUNT 4.5 TH/MM3 (4.0-11.0)
[2017-09-30 04:15] LABS: PROTHROMBIN TIME - PATIENT 10.6 SEC (9.8-11.6)
[2017-09-30 04:18] LABS: ALBUMIN 3.7 GM/DL (3.4-5.0); ALT (GPT) 18 U/L (10-53); AST (GOT) 17 U/L (15-37); BICARBONATE 22.5 MEQ/L (21.0-32.0); BLOOD UREA NITROGEN 8 MG/DL (7-18); CHLORIDE 111 MEQ/L (98-107); CREATININE 0.61 MG/DL (0.50-1.00); GLOMERULAR FILTRATION RATE 103 ML/MIN (>89); GLUCOSE,RANDOM 74 MG/DL (74-106); MAGNESIUM 2.1 MG/DL (1.5-2.5); PHOSPHORUS 1.9 MG/DL (2.5-4.9); SODIUM (NA) 142 MEQ/L (136-145)
[2017-09-30 04:20] LABS: ALKALINE PHOSPHATASE 47 U/L (45-117); TOTAL BILIRUBIN ADULT 0.7 MG/DL (0.2-1.0); TOTAL PROTEIN 7.9 GM/DL (6.4-8.2)
[2017-09-30] MEDS: DOCUSATE SODIUM 50 MG/SENNA 8.6 MG TAB PO SCH ×2 (09:04→21:25)
[2017-09-30] MEDS: oxyCODONE/ACETAMINOPHEN 5 MG/325 MG TAB PO PRN ×2 (09:04→21:25)
[2017-09-30] MEDS: FAMOTIDINE 20 MG TAB PO SCH ×2 (09:04→21:25)
[2017-09-30] MEDS: SODIUM CHLOR 0.9% 1000 ML INJ 1,000 ML IV SCH ×2 (09:45→21:26)
--- NOTE | 2017-09-30 10:19 | HHI.NSPN ---
(Janet Whitten) Note Status Status: Progress Note (Janet Whitten) Interval History Interval History This is a 52-year-old lady with history of hypertension. She has apparently been off her medications for the last 2 months. She presented to [place] emergency department complaining of weakness over the left hand and left leg. She started feeling some numbness over the left upper extremity yesterday night before going to bed, and this morning upon awakening she felt increasing weakness over the left side, dropping things from her left hand and and having difficulty walking due to left leg weakness. In addition she had headaches with sensation of pressure and nauseas but no vomiting. She denies any prior episodes. She denies blurry vision, no photophobia, no vomiting. No loss of consciousness. No seizure activity. no tongue bitting. No incontinence of stool or urine. No prior history of stroke. In emergency department she underwent a CT head that showed multifocal parenchymal hemorrhages with the largest hematoma approximately 4 cm in the right basal ganglia.She was transferred to [facility] for neurosurgery evaluation. Left- sided weakness improving 09/30: reports headaches a bit better today, also improvement of left side strength, stable numbness. denies vomiting, chest pain, vision changes, seizures. (Janet Whitten) Labs, Micro, & Vital Signs Results Date Time Temp Pulse Resp B/P (MAP) Pulse Ox O2 Delivery O2 Flow Rate FiO2 09/30/17 06:00 64 09/30/17 04:00 98.8 66 14 148/75 (99) 100 09/30/17 04:00 66 09/30/17 02:00 58 09/30/17 00:00 98.6 70 14 151/81 (104) 100 09/30/17 00:00 61 09/29/17 23:10 100 09/29/17 22:00 68 09/29/17 22:00 68 09/29/17 20:00 68 09/29/17 20:00 98.8 68 15 154/84 (107) 100 09/29/17 20:00 68 09/29/17 19:29 100 09/29/17 19:00 100 Room Air 09/29/17 18:02 Room Air 09/29/17 18:00 80 09/29/17 17:00 92 09/29/17 16:40 98.0 96 20 146/92 (110) 100 09/29/17 15:34 89 16 136/75 (95) 98 09/29/17 14:29 80 16 147/79 (101) 97 Room Air 09/29/17 13:56 Room Air 09/29/17 13:50 90 16 154/88 (110) 97 Room Air 09/29/17 13:00 76 155/93 (113) 98 09/29/17 11:47 77 16 154/84 (107) 99 Room Air 09/29/17 10:42 (114) 09/29/17 10:34 97.7 87 16 163/90 (114) 98 Room Air 09/29/17 10:34 98 Room Air 09/29/17 10:34 Room Air Constitutional Vital Signs Date Time Temp Pulse Resp B/P (MAP) Pulse Ox O2 Delivery O2 Flow Rate FiO2 09/30/17 06:00 64 09/30/17 04:00 98.8 66 14 148/75 (99) 100 09/30/17 04:00 66 09/30/17 02:00 58 09/30/17 00:00 98.6 70 14 151/81 (104) 100 09/30/17 00:00 61 09/29/17 23:10 100 09/29/17 22:00 68 09/29/17 22:00 68 09/29/17 20:00 68 09/29/17 20:00 98.8 68 15 154/84 (107) 100 09/29/17 20:00 68 09/29/17 19:29 100 09/29/17 19:00 100 Room Air 09/29/17 18:02 Room Air 09/29/17 18:00 80 09/29/17 17:00 92 09/29/17 16:40 98.0 96 20 146/92 (110) 100 09/29/17 15:34 89 16 136/75 (95) 98 09/29/17 14:29 80 16 147/79 (101) 97 Room Air 09/29/17 13:56 Room Air 09/29/17 13:50 90 16 154/88 (110) 97 Room Air 09/29/17 13:00 76 155/93 (113) 98 09/29/17 11:47 77 16 154/84 (107) 99 Room Air 09/29/17 10:42 (114) 09/29/17 10:34 97.7 87 16 163/90 (114) 98 Room Air 09/29/17 10:34 98 Room Air 09/29/17 10:34 Room Air (Janet Whitten) Review of Systems Constitutional: DENIES: Fever, Chills Eyes: DENIES: Diplopia, Vision loss Respiratory: DENIES: Hemoptysis, Shortness of breath Cardiovascular: DENIES: Chest pain Neurologic: COMPLAINS OF: Headache, Localized weakness, Paresthesias, DENIES: Seizures (Janet Whitten) Physical Exam General: well nourished female, in no acute distress. HEENT: normocephalic, atraumatic. Pupils equal. Nonicteric sclera. Neuro: Alert, awake and oriented to time, place and person. Speech is fluent. Follows commands without apraxia. Cranial nerve examination: pupils equal, round and reactive to light. Extra-ocular movements are intact. Facial motor and sensory function are normal and symmetrical. Gross hearing appears intact. Sternocleidomastoid and trapezius muscles are symmetrical. Other cranial nerves are intact. Neck is soft and supple with a good range of motion without pain. Muscle strength with good strength right upper and lower extremities, with mild left hemiparesis. Sensory examination is intact to light touch in both the upper and lower extremities. Deep tendon reflexes are symmetrical in both upper and lower extremities. There is a bilateral plantar flexion response. Cerebellar examination is unremarkable, without deficits. Heart: regular rate, rhythm Resp: clear, no wheezes, nonlabored breathing Skin: warm, dry (Janet Whitten) General: well nourished female, in no acute distress. HEENT: normocephalic, atraumatic. Pupils equal. Nonicteric sclera. Neuro: Alert, awake and oriented to time, place and person. Speech is fluent. Follows commands without apraxia. Cranial nerve examination: pupils equal, round and reactive to light. Extra-ocular movements are intact. Facial motor and sensory function are normal and symmetrical. Gross hearing appears intact. Sternocleidomastoid and trapezius muscles are symmetrical. Other cranial nerves are intact. Neck is soft and supple with a good range of motion without pain. Muscle strength with good strength right upper and lower extremities, with mild left hemiparesis. Sensory examination is intact to light touch in both the upper and lower extremities. Deep tendon reflexes are symmetrical in both upper and lower extremities. There is a bilateral plantar flexion response. Cerebellar examination is unremarkable, without deficits. Heart: regular rate, rhythm Resp: clear, no wheezes, nonlabored breathing Skin: warm, dry (Harshil Pang MD) Medications Current Medications Current Medications Medications (Trade) Dose Ordered Sig/Jovany Route PRN Reason Start Time Stop Time Status Last Admin Dose Admin Sodium Chloride 1,000 ml @ 100 mls/hr Q10H IV 09/29/17 13:45 09/29/17 00:45 Acetaminophen (Tylenol) 650 mg Q6H PRN PO PAIN 1-4 AND/OR FEVER >100.4F 09/29/17 16:45 Oxycodone/ Acetaminophen (Percocet 5-325 Mg) 1 tab Q4H PRN PO PAIN SCALE 5 TO 10 09/29/17 16:45 09/30/17 09:04 Famotidine (Pepcid) 20 mg Q12HR PO 09/29/17 21:00 09/30/17 09:04 Albuterol/ Ipratropium (Duoneb Neb) 1 ampule Q4HR NEB PRN INH WHEEZING 09/29/17 16:45 Miscellaneous Information 1 Q361D XX 09/29/17 16:45 09/29/17 18:26 Chlorhexidine Gluconate (Chlorhexidine 2% Cloth) 3 pack Taper DAILY@04 TOP 09/30/17 04:00 09/26/18 03:59 Chlorhexidine Gluconate (Chlorhexidine 2% Cloth) 3 pack UNSCH PRN TOP HYGIENIC CARE 09/29/17 16:45 Senna/Docusate Sodium (Paula-Colace) 1 tab BID PO 09/29/17 21:00 09/30/17 09:04 Magnesium Hydroxide (Milk Of Magnesia Liq) 30 ml Q12H PRN PO Mild constipation 09/29/17 16:45 Potassium Chloride 100 ml @ 50 mls/hr Q2H PRN IV For Potassium 2.8 - 3.2 mEq/L 09/29/17 16:45 Potassium Chloride 100 ml @ 50 mls/hr Q2H PRN IV For Potassium 2.8 - 3.2 mEq/L 09/29/17 16:45 09/29/17 23:45 Potassium Bicarb/ Potassium Chloride (K-Lyte Cl Eff) 50 meq UNSCH PRN PO For Potassium 3.3 - 3.5 mEq/L 09/29/17 16:45 Potassium Chloride 100 ml @ 25 mls/hr UNSCH PRN IV For Potassium 3.3 - 3.5 mEq/L 09/29/17 16:45 Potassium Chloride 100 ml @ 50 mls/hr Q2H PRN IV For Potassium 3.3 - 3.5 mEq/L 09/29/17 16:45 Magnesium Sulfate 4 gm/Sodium Chloride 100 ml @ 50 mls/hr UNSCH PRN IV For Magnesium 0.9 - 1.1 mg/dL 09/29/17 16:45 Magnesium Oxide (Mag-Ox) 800 mg UNSCH PRN PO For Magnesium 1.2 - 1.6 mg/dL 09/29/17 16:45 Magnesium Sulfate 2 gm/Sodium Chloride 100 ml @ 50 mls/hr UNSCH PRN IV For Magnesium 1.2 - 1.6 mg/dL 09/29/17 16:45 Potassium Phosphate (K-Phos) 2,000 mg Q4H PRN PO For Phosphorus < 2.5 mg/dL 09/29/17 16:45 Sodium Phosphate 30 mmol/Sodium Chloride 250 ml @ 42 mls/hr UNSCH PRN IV For Phosphorus < 2.5 mg/dL 09/29/17 16:45 09/30/17 09:03 Potassium Phosphate (K-Phos) 2,000 mg UNSCH PRN PO/TUBE SEE LABEL COMMENTS 09/29/17 16:45 Potassium Phosphate 30 mmol/ Sodium Chloride 260 ml @ 42 mls/hr UNSCH PRN IV SEE LABEL COMMENTS 09/29/17 16:45 Labetalol HCl (Trandate Inj) 20 mg Q15M PRN IV PUSH sbp > 160 09/30/17 00:15 Hydralazine HCl (Apresoline Inj) 10 mg Q30M PRN IV PUSH sbp > 160 09/30/17 00:15 (Janet Whitten) Current Medications Current Medications Diphenhydramine HCl (Benadryl Inj) 25 mg ONCE ONCE IV PUSH Last administered on 09/29/17at 13:38; Start 09/29/17 at 13:45; Stop 09/29/17 at 13:46; Status DC Iohexol (Omnipaque 350 Inj) 85 ml STK-MED ONCE IVCONTRAST Last administered on 09/29/17at 13:37; Start 09/29/17 at 13:37; Stop 09/29/17 at 13:38; Status DC Hydromorphone HCl (Dilaudid Pf Inj) 0.5 mg ONCE ONCE IV PUSH Last administered on 09/29/17at 13:44; Start 09/29/17 at 13:45; Stop 09/29/17 at 13:46 ; Status DC Ondansetron HCl (Zofran Inj) 4 mg ONCE ONCE IV PUSH Last administered on at 13:44; Start 09/29/17 at 13:45; Stop 09/29/17 at 13:46; Status DC Sodium Chloride 1,000 ml @ 100 mls/hr Q10H IV Last administered on 10/01/17at 05:45; Start 09/29/17 at 13:45; Stop 10/01/17 at 14:32; Status DC Acetaminophen (Tylenol) 650 mg Q6H PRN PO PAIN 1-4 AND/OR FEVER >100.4F; Start 09/29/17 at 16:45 Oxycodone/ Acetaminophen (Percocet 5-325 Mg) 1 tab Q4H PRN PO PAIN SCALE 5 TO 10 Last administered on 09/30/17at 21:25; Start 09/29/17 at 16:45 Famotidine (Pepcid) 20 mg Q12HR PO Last administered on 10/02/17at 09:56; Start 09/29/17 at 21:00 Albuterol/ Ipratropium (Duoneb Neb) 1 ampule Q4HR NEB PRN INH WHEEZING; Start 09/29/17 at 16:45 Miscellaneous Information 1 Q361D XX Last administered on 09/29/17at 18:26; Start 09/29/17 at 16:45 Chlorhexidine Gluconate (Chlorhexidine 2% Cloth) 3 pack Taper DAILY@04 TOP Last administered on 10/01/17at 04:00; Start 09/30/17 at 04:00; Stop 09/26/18 at 03:59 Chlorhexidine Gluconate (Chlorhexidine 2% Cloth) 3 pack UNSCH PRN TOP HYGIENIC CARE; Start 09/29/17 at 16:45 Senna/Docusate Sodium (Paula-Colace) 1 tab BID PO Last administered on at 09:56; Start 09/29/17 at 21:00 Magnesium Hydroxide (Milk Of Magnesia Liq) 30 ml Q12H PRN PO Mild constipation ; Start 09/29/17 at 16:45 Potassium Chloride 100 ml @ 50 mls/hr Q2H PRN IV For Potassium 2.8 - 3.2 mEq/L ; Start 09/29/17 at 16:45; Stop 10/02/17 at 08:39; Status DC Potassium Chloride 100 ml @ 50 mls/hr Q2H PRN IV For Potassium 2.8 - 3.2 mEq/ L Last administered on 09/29/17at 23:45; Start 09/29/17 at 16:45; Stop 10/02/17 at 08:39; Status DC Potassium Bicarb/ Potassium Chloride (K-Lyte Cl Eff) 50 meq UNSCH PRN PO For Potassium 3.3 - 3.5 mEq/L; Start 09/29/17 at 16:45; Stop 10/02/17 at 08:39; Status DC Potassium Chloride 100 ml @ 25 mls/hr UNSCH PRN IV For Potassium 3.3 - 3.5 mEq /L; Start 09/29/17 at 16:45; Stop 10/02/17 at 08:39; Status DC Potassium Chloride 100 ml @ 50 mls/hr Q2H PRN IV For Potassium 3.3 - 3.5 mEq/L ; Start 09/29/17 at 16:45; Stop 10/02/17 at 08:39; Status DC Magnesium Sulfate 4 gm/Sodium Chloride 100 ml @ 50 mls/hr UNSCH PRN IV For Magnesium 0.9 - 1.1 mg/dL; Start 09/29/17 at 16:45; Stop 10/02/17 at 08:39; Status DC Magnesium Oxide (Mag-Ox) 800 mg UNSCH PRN PO For Magnesium 1.2 - 1.6 mg/dL; Start 09/29/17 at 16:45; Stop 10/02/17 at 08:39; Status DC Magnesium Sulfate 2 gm/Sodium Chloride 100 ml @ 50 mls/hr UNSCH PRN IV For Magnesium 1.2 - 1.6 mg/dL; Start 09/29/17 at 16:45; Stop 10/02/17 at 08:39; Status DC Potassium Phosphate (K-Phos) 2,000 mg Q4H PRN PO For Phosphorus < 2.5 mg/dL; Start 09/29/17 at 16:45; Stop 10/02/17 at 08:39; Status DC Sodium Phosphate 30 mmol/Sodium Chloride 250 ml @ 42 mls/hr UNSCH PRN IV For Phosphorus < 2.5 mg/dL Last administered on 09/30/17at 09:03; Start 09/29/17 at 16:45; Stop 10/02/17 at 08:39; Status DC Potassium Phosphate (K-Phos) 2,000 mg UNSCH PRN PO/TUBE SEE LABEL COMMENTS; Start 09/29/17 at 16:45; Stop 10/02/17 at 08:39; Status DC Potassium Phosphate 30 mmol/ Sodium Chloride 260 ml @ 42 mls/hr UNSCH PRN IV SEE LABEL COMMENTS; Start 09/29/17 at 16:45; Stop 10/02/17 at 08:39; Status DC Labetalol HCl (Trandate Inj) 20 mg Q15M PRN IV PUSH sbp > 160 Last administered on 10/01/17at 08:07; Start 09/30/17 at 00:15; Stop 10/01/17 at 14:32 ; Status DC Hydralazine HCl (Apresoline Inj) 10 mg Q30M PRN IV PUSH sbp > 160; Start at 00:15; Stop 10/01/17 at 14:32; Status DC Gadodiamide (Omniscan Pf Inj) 20 ml STK-MED ONCE IVCONTRAST Last administered on 09/30/17at 14:48; Start 09/30/17 at 14:28; Stop 09/30/17 at 14:29; Status DC Amlodipine Besylate (Norvasc) 10 mg DAILY PO Last administered on 10/02/17at 09: 56; Start 10/01/17 at 09:00 Valsartan (Diovan) 160 mg DAILY PO Last administered on 10/02/17at 09:56; Start 10/01/17 at 09:00 Enalaprilat (Vasotec Inj) 1.25 mg Q8H PRN IV PUSH SBP > 160; Start 10/01/17 at 14:45 (Harshil Pang MD) Medical Decision Making MDM Remarks 52 year old female with right basal ganglia hemorrhage, most likely hypertensive in etiology, no evidence of underlying aneurysm or AVM on the right. 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 No suspicious findings on the right. Stanton Greenberg MD Head CT 09/29/171030 Signed Impressions: Service Date/Time: Friday, September 29, 2017 11:36 - CONCLUSION: Multifocal parenchymal hemorrhages. Stanton Greenberg MD Chest X-Ray 09/29/171030 Signed Impressions: Service Date/Time: Friday, September 29, 2017 10:52 - CONCLUSION: No acute disease. Stanton Greenberg MD (Janet Whitten) Plan Plan Remarks Neuro stable, symptoms improving cont nonoperative management cont neuro checks in [facility] f/u CT Brain today Dr. Pang requesting Neurology consultation also strict blood pressure control will defer to hoisting engineer clear to start oral diet from NRS standpoint PT, OT, ok to mobilize with assistance from NRS standpoint Protonix for stress ulcer prophylaxis nonchemical dvt prophylaxis with Angelito rodriguez and SCD's due to acute ICH discussed with patient (Janet Whitten) Attending Statement As above Neuro. Continue neuro checks in a serial fashion. Pulmonary. Continue aggressive pulmonary toilette, nasotracheal suction, and breathing treatments with nebulizers. Daily PT and OT Renal. Continue to monitor closely urine output, BUN and creatinine Endocrine. Continue to Monitor serial Acu checks and SSI as needed in detail ID continue to monitor for signs of infection Continue Protonix for stress ulcer prophylaxis Continue Angelito hose and SCD's for DVT prophylaxis Further recommendations will be provided depending on the patient's clinical evaluation and follow up studies. The exam, history, and the medical decision-making described in the above note were completed with the assistance of the mid-level provider. I reviewed and agree with the findings presented. I attest that I had a [id number] encounter with the patient on the same day, and personally performed and documented my assessment and findings in the medical record. (Harshil Pang MD) Janet Whitten Sep 30, 2017 10:19 Harshil Pang MD Oct 02, 2017 15:08
--- NOTE | 2017-09-30 14:01 | MB ---
cc: Karel Manzo MD DATE: 09/30/2017 HISTORY OF PRESENT ILLNESS: A 52-year-old right-handed woman with hypertension, just moved from [facility] here in December. Has some hypertension usually running about 140s over 90s, checks it fairly regularly at home. Two nights ago about 2 a.m., she woke up with a severe headache, took some Advil and the next morning was not moving her left arm so well, came in the hospital, had a large right 4 cm parenchymal hematoma in the right lentiform nucleus and a 7 mm hemorrhagic focus around the left caudate head. A CTA of the neck was normal. A CT of the head showed developmental venous anomaly in the left frontal region, venous angioma, nothing on the right. REVIEW OF SYSTEMS: According to the , there has been hypertension, but no history of hypercholesterolemia, NM, CABG, stent, angioplasty, atrial fibrillation, Coumadin, kidney, liver, lungs, thyroid, lupus, ulcer, cancer, seizure, stroke. There has been no fever or other illness or rash since she has been in the . SOCIAL HISTORY: Nonsmoker or drinker. No drugs. Lives with her . FAMILY HISTORY: Negative for cancer, seizure. Positive for stroke in her brother who . ALLERGIES: ALLERGIC TO IODINATED CONTRAST. MEDICATIONS: She takes amlodipine, valsartan/hydrochlorothiazide at home. PHYSICAL EXAMINATION: VITAL SIGNS: Initial blood pressure 163/90, now 127/70, afebrile, 66. NECK: No carotid bruits. HEART: Regular rhythm. I do not detect a murmur. NEUROLOGIC: Pupils are equal. Visual velez are full. Extraocular movements intact without nystagmus. Face is symmetric with normal sensation. Tongue was midline. There is a positive left drift, but she had normal strength in upper and lower extremities bilaterally. Toes downgoing bilaterally. No ankle clonus. DTRs are 2+ symmetric throughout. Pinprick is intact throughout face, arm, and leg bilaterally. She is slightly unsteady on [id number] on the left, not on the right. Toe to finger appeared okay. LABORATORY DATA: CBC is normal. Urine drug screen negative. Coags normal. Basic metabolic profile is essentially normal. Troponins negative. Albumin normal. Platelet count is normal. I did order an MRI of the brain, especially with the bilateral hemorrhage is just a little bit unusual, and MR venogram along with an echo and Holter and some blood work. Otherwise, I thought she looked well neurologically. Appears to be a venous angioma on the left ____ appears to be a hemorrhage acutely now on both sides, a bit unusual. MD MARIE ClementM/TL/ , 01:16 PM , 01:43 PM
--- NOTE | 2017-09-30 14:05 | HHI.CCPN ---
Subjective Remarks/Hospital Course 09/29: 52-year-old lady with history of hypertension off meds for the last 2 months, now presents to [place] emergency department complaining of weakness over the left hand and left leg. Per patient, she started feeling some numbness over the left upper extremity yesterday night before going to bed , and this morning upon awakening she felt increasing weakness over the left side, dropping things from her left hand and and having difficulty walking due to left leg weakness. In addition patient also complained of headache and some nausea but no vomiting. She denies any prior episodes, no blurry vision, no photophobia, no vomiting. No loss of consciousness. No prior history of stroke. In emergency department she underwent a CT head that showed multifocal parenchymal hemorrhages with the largest hematoma approximately 4 cm in the right hemisphere. Patient was transferred to [facility] for further care and to be evaluated by neurosurgery. She is currently resting in bed, headache is improved, left-sided weakness improved as well. 09/30: Patient did well over the night. Denies headache, had some nausea earlier today but no vomiting, now resolved. She denies any chest pain, palpitations, abdominal pain, dysuria, blurry vision, double vision or photophobia. Objective Vital Signs Date Time Temp Pulse Resp B/P (MAP) Pulse Ox O2 Delivery O2 Flow Rate FiO2 09/30/17 06:00 64 09/30/17 04:00 98.8 14 148/75 (99) 100 09/29/17 19:00 Room Air Intake and Output 09/30/17 09/30/17 09/30/17 07:59 15:59 23:59 Output Total 825 ml Balance -825 ml Result Diagram: 09/30/17 0235 09/30/17 0235 Imaging Last Impressions Neck CTA 09/29/17 1031 Signed Impressions: Service Date/Time: Friday, September 29, 2017 13:23 - CONCLUSION: Negative study Stanton Greenberg MD Head CTA 09/29/17 1031 Signed Impressions: Service Date/Time: Friday, September 29, 2017 13:23 - CONCLUSION: 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 No suspicious findings on the right. Stanton Greenberg MD Head CT 09/29/17 1031 Signed Impressions: Service Date/Time: Friday, September 29, 2017 11:36 - CONCLUSION: Multifocal parenchymal hemorrhages. Stanton Greenberg MD Chest X-Ray 09/29/17 1031 Signed Impressions: Service Date/Time: Friday, September 29, 2017 10:52 - CONCLUSION: No acute disease. Stanton Greenberg MD Objective Remarks General - middle-aged lady, awake, in no distress HEENT - pupils are equal, and reactive, sclerae are anicteric, neck is supple, no rigidity, no JVD, MMM, no thrush CV - regular heart sounds, no murmurs Chest - clear b/l, good air entry, no wheezes Abdomen - soft, non-tender, non-distended, BS present Skin - no rashes Extremities - warm, no edema, + peripheral pulses Neuro -awake, alert, oriented 3, pupils are equal and reactive, EOMI, smile is symmetric, tongue is midline, shrugs shoulders, no pronator drift, motor 5/5 overall extremities, sensation is intact A/P Assessment and Plan 1. Multifocal spontaneous intraparenchymal hemorrhages, with the largest in the right basal ganglia 2. Hypertension - off meds over the last 2 months 3. Hypokalemia -resolved 1. MRI today 2. Neurochecks 3. Keep head of the bed elevated, maintain normothermia, avoid agitation 4. Neurology consult 5. BP control 6. Avoid antiplatelets 7. Advance diet to regular 8. Stat CT head with any change in mental status 9. Isotonic fluid 10. GI prophylaxis 11. DVT prophylaxis with SCDs. Will hold pharmacologic DVT prophylaxis due to hemorrhage Cirilo Calhoun MD Sep 30, 2017 14:05
[2017-09-30] MEDS ORDERED: GADODIAMIDE PF 287 MG/ML 5 ML VIAL (for RAD MRI) IVCONTRAST ONE (14:28)
--- NOTE | 2017-09-30 16:07 | RADRPT ---
EXAM DATE/TIME: 09/30/2017 14:20 COMPARISON: MRI BRAIN W & W/O CONTRAST, September 30, 2017, 14:20. INDICATIONS : Thrombosis CONTRAST: 20 cc Omniscan (gadodiamide) IV MEDICAL HISTORY : None. SURGICAL HISTORY : Cholecystectomy. Ankle sx. ENCOUNTER: Initial ACUITY: 1 day PAIN SCORE: 8/10 LOCATION: Bilateral cranial FINDINGS: Left frontal venous angioma is noted. The cerebral venous structures are otherwise symmetric and norm al. Specifically, no evidence of sinus thrombosis or deep cerebral venous thrombosis. The major corti azra surface veins are symmetric and patent. CONCLUSION: Left frontal venous angioma Stanton Greenberg MD on September 30, 2017 at 16:04 Board Certified Radiologist. This report was verified electronically.
--- NOTE | 2017-09-30 16:12 | RADRPT ---
EXAM DATE/TIME: 09/30/2017 14:20 [place] COMPARISON: CT BRAIN W/O CONTRAST, September 29, 2017, 11:36. INDICATIONS : Metastatic disease. CONTRAST: 20 cc Omniscan (gadodiamide) IV MEDICAL HISTORY : None. SURGICAL HISTORY : Cholecystectomy. Ankle sx. ENCOUNTER: Initial ACUITY: 1 day PAIN SCORE: 4/10 LOCATION: Bilateral cranial TECHNIQUE: Multiplanar, multisequence MRI of the brain was performed both prior to and following the administrat ion of paramagnetic contrast. FINDINGS: Evolving right basal ganglia parenchymal hematoma and adjacent edema. This is subacute. Hemosiderin s ignal without significant methemoglobin signal adjacent to the left caudate head consistent with hemo rrhage of older age and potentially calcification as well. Mild right hemispheric mass effect appears grossly stable. Minimal subfalcine shift which is stable. Paramesencephalic cisterns are patent. Lef t frontal venous angioma. No abnormal parenchymal enhancement and no abnormal vessels evident on the contralateral right side. Posterior fossa and brainstem structures are normal. Extracranial structures are benign and intact. CONCLUSION: Subacute age right basal ganglia hematoma without findings to suggest underlying vascular or neoplast ic lesion. Left frontal venous angioma with small area of adjacent hemosiderin signal. No other new acute findings. Stanton Greenberg MD on September 30, 2017 at 16:05 Board Certified Radiologist. This report was verified electronically.
--- NOTE | 2017-09-30 17:07 | ECHRPT ---
Indication: CVA/TIA CONCLUSIONS Normal left ventricular size. Wall thickness is normal. The left ventricular systolic function is hyperdynamic with an estimated ejection fraction in the ra nge of 65- 70%. Trace mitral valve regurgitation. There is trace tricuspid valve regurgitation. BP: 148 / 75 HR: 66 Rhythm: Sinus MEASUREMENTS (Male / Female) Normal Values Technical Quality:Fair 2D ECHO LVOT Diameter 1.8 cm Aortic Root Diameter 3.0 cm M-MODE AV Cusp Separation MM 2.1 cm DOPPLER AV Peak Velocity 164.0 cm/s AV Peak Gradient 10.8 mmHg AV Mean Gradient 5.0 mmHg AV Velocity Time Integral 24.9 cm LVOT Peak Velocity 102.0 cm/s LVOT Peak Gradient 4.2 mmHg LVOT Velocity Time Integral 14.5 cm AV Area Cont Eq vti 1.5 cm AV Area Cont Eq pk 1.6 cm Mitral E Point Velocity 72.6 cm/s Mitral A Point Velocity 112.0 cm/s Mitral E to A Ratio 0.6 LV E' Lateral Velocity 10.4 cm/s Mitral E to LV E' Lateral Ratio 7.0 LV E' Septal Velocity 9.9 cm/s Mitral E to LV E' Septal Ratio 7.3 PV Peak Velocity 134.0 cm/s PV Peak Gradient 7.2 mmHg FINDINGS LEFT VENTRICLE Normal left ventricular size. Wall thickness is normal. The left ventricular systolic function is hyperdynamic with an estimated ejection fraction in the ra nge of 65- 70%. RIGHT VENTRICLE Normal right ventricular size and systolic function. LEFT ATRIUM The left atrial size is normal. RIGHT ATRIUM The right atrial size is normal. ATRIAL SEPTUM No atrial level shunt is demonstrated by color flow Doppler interrogation. AORTA The aortic root and proximal ascending aorta are not well visualized. MITRAL VALVE Trace mitral valve regurgitation. AORTIC VALVE Trileaflet aortic valve. No aortic valve stenosis or regurgitation. TRICUSPID VALVE There is trace tricuspid valve regurgitation. PULMONARY VALVE No pulmonary valve regurgitation or stenosis. VESSELS The inferior vena cava is normal in size. PERICARDIUM No pericardial effusion. Johann Cruz MD, FACC, [facility] [place] (Electronically Signed) Final Date:30 September 2017 17:06
[2017-09-30 17:21] LABS: C-REACTIVE PROTEIN LESS THAN 0.29 MG/DL (0.00-0.30)
[2017-09-30 17:46] LABS: FREE T4 1.23 NG/DL (0.76-1.46)
[2017-09-30 17:50] LABS: RHEUMATOID FACTOR SCREEN NEGATIVE (NEGATIVE)
[2017-09-30 17:51] LABS: FOLATE GREATER THAN 20.0 NG/ML (3.1-17.5)
--- NOTE | 2017-09-30 18:24 | RADRPT ---
EXAM DATE/TIME: 09/30/2017 18:16 [facility] COMPARISON: No previous studies available for comparison. INDICATIONS : Intracerebral hemorrhage. RADIATION DOSE: 46.51 CTDIvol (mGy) MEDICAL HISTORY : Hypertension. SURGICAL HISTORY : None. ENCOUNTER: Subsequent ACUITY: 2 days PAIN SCALE: 1/10 LOCATION: cranial TECHNIQUE: Multiple contiguous axial images were obtained of the head. Using automated exposure control and adj ustment of the mA and/or kV according to patient size, radiation dose was kept as low as reasonably a chievable to obtain optimal diagnostic quality images. DICOM format image data is available electro nically for review and comparison. FINDINGS: There is an approximately 3.7 cm acute hemorrhage in the right basal ganglia, similar to prior study from September 29. There is also a possible tiny hemorrhage around the left frontal horn on the left late ral ventricle, decreased in size from prior exam. No new hemorrhage is identified. No abnormal extra-axial fluid collections. No acute bony abdomen obese. CONCLUSION: 1. Stable hemorrhage right basal ganglia. Improved hemorrhage left frontal lobe deep white matter. Lowell Vidales MD on September 30, 2017 at 18:20 Board Certified Radiologist. This report was verified electronically.
[2017-10-01] VITALS (12 sets, daily range): BP systolic 128–175; BP diastolic 70–107; PULSE 89–103; RESP 14–22; TEMP 98–99.6; O2SAT 94–100
[2017-10-01] MEDS: CHLORHEXIDINE GLUCONATE 2 % 1 PACK (2 CLOTHS) TOP SCH (04:00)
[2017-10-01] MEDS: LABETALOL HCL 100 MG/20 ML VIAL IV PUSH PRN ×2 (05:00→08:07)
[2017-10-01] MEDS: SODIUM CHLOR 0.9% 1000 ML INJ 1,000 ML IV SCH (05:45)
--- NOTE | 2017-10-01 07:44 | HHI.PR ---
Subjective Remarks bp up a bit Objective Vital Signs Date Time Temp Pulse Resp B/P (MAP) Pulse Ox O2 Delivery O2 Flow Rate FiO2 10/01/17 06:00 103 10/01/17 04:00 96 10/01/17 04:00 99.0 96 22 168/92 (117) 94 10/01/17 02:00 89 10/01/17 00:00 92 10/01/17 00:00 92 18 159/75 (103) 98 09/30/17 22:00 102 09/30/17 20:00 98.9 104 20 155/80 (105) 97 09/30/17 20:00 102 09/30/17 19:00 98 Room Air 09/30/17 18:00 111 09/30/17 16:00 98.2 107 23 137/77 (97) 100 09/30/17 16:00 107 09/30/17 14:00 90 09/30/17 12:00 98.9 84 18 117/63 (81) 100 09/30/17 12:00 84 09/30/17 10:00 82 09/30/17 08:00 66 09/30/17 08:00 98.0 66 18 147/85 (105) 100 I/O 09/30/17 09/30/17 09/30/17 10/01/17 10/01/17 10/01/17 07:00 15:00 23:00 07:00 15:00 23:00 Intake Total 960 ml Output Total 825 ml 900 ml 950 ml Balance -825 ml -900 ml 10 ml Intake Oral 960 ml Output Urine Total 825 ml 900 ml 950 ml # Voids 4 3 # Bowel Movements 1 Result Diagram: 09/30/17 0235 09/30/17 0235 Objective Remarks ox3 alert 5/5 vff face sym Assessment and Plan Assessment and Plan imp right ich acute the left frontal bleed may be old left venous angioma mrv ok lab ok we will repeat the mri in 8 weeks there is some enhancement of the middle of the r ich ow neurowise ok and will defer to Karel Elkins MD Oct 01, 2017 07:44
[2017-10-01] MEDS: FAMOTIDINE 20 MG TAB PO SCH ×2 (08:07→22:13)
[2017-10-01] MEDS: DOCUSATE SODIUM 50 MG/SENNA 8.6 MG TAB PO SCH ×2 (08:07→21:00)
[2017-10-01] MEDS: VALSARTAN 160 MG TAB PO SCH (10:52)
--- NOTE | 2017-10-01 13:52 | HHI.CCPN ---
Subjective Remarks/Hospital Course 09/29: 52-year-old lady with history of hypertension off meds for the last 2 months, now presents to [place] emergency department complaining of weakness over the left hand and left leg. Per patient, she started feeling some numbness over the left upper extremity yesterday night before going to bed , and this morning upon awakening she felt increasing weakness over the left side, dropping things from her left hand and and having difficulty walking due to left leg weakness. In addition patient also complained of headache and some nausea but no vomiting. She denies any prior episodes, no blurry vision, no photophobia, no vomiting. No loss of consciousness. No prior history of stroke. In emergency department she underwent a CT head that showed multifocal parenchymal hemorrhages with the largest hematoma approximately 4 cm in the right hemisphere. Patient was transferred to [facility] for further care and to be evaluated by neurosurgery. She is currently resting in bed, headache is improved, left-sided weakness improved as well. 09/30: Patient did well over the night. Denies headache, had some nausea earlier today but no vomiting, now resolved. She denies any chest pain, palpitations, abdominal pain, dysuria, blurry vision, double vision or photophobia. 10/01: Episodes of hypotension overnight requiring as needed labetalol and hydralazine. Afebrile with a T-max of 99.6. Patient feels better, headache is about the same, no nausea, no vomiting, no blurry vision, no photophobia. No chest pain, dyspnea or palpitations. present at bedside. Objective Vital Signs Date Time Temp Pulse Resp B/P (MAP) Pulse Ox O2 Delivery O2 Flow Rate FiO2 10/01/17 12:00 93 10/01/17 12:00 99.6 20 144/77 (99) 95 10/01/17 08:23 21 10/01/17 07:00 Room Air Intake and Output 10/01/17 10/01/17 10/02/17 08:00 16:00 00:00 Intake Total 960 ml Output Total 950 ml Balance 10 ml Result Diagram: 09/30/17 0235 09/30/17 0235 Imaging Last Impressions Head/Brain Mag Res Venography 09/30/17 0000 Signed Impressions: Service Date/Time: September 14:20 - CONCLUSION: Left frontal venous angioma Stanton Greenberg MD Head CT 09/30/17 0000 Signed Impressions: Service Date/Time: September 18:16 - CONCLUSION: 1. Stable hemorrhage right basal ganglia. Improved hemorrhage left frontal lobe deep white matter. Lowell Vidales MD Brain MRI 09/30/17 0000 Signed Impressions: Service Date/Time: September 14:20 - CONCLUSION: Subacute age right basal ganglia hematoma without findings to suggest underlying vascular or neoplastic lesion. Left frontal venous angioma with small area of adjacent hemosiderin signal. No other new acute findings. Stanton Greenberg MD Neck CTA 09/29/17 1031 Signed Impressions: Service Date/Time: Friday, September 29, 2017 13:23 - CONCLUSION: Negative study Stanton Greenberg MD Head CTA 09/29/17 1031 Signed Impressions: Service Date/Time: Friday, September 29, 2017 13:23 - CONCLUSION: 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 No suspicious findings on the right. Stanton Greenberg MD Chest X-Ray 09/29/17 1031 Signed Impressions: Service Date/Time: Friday, September 29, 2017 10:52 - CONCLUSION: No acute disease. Stanton Greenberg MD Objective Remarks General - middle-aged lady, awake, in no distress HEENT - pupils equal, and reactive, sclerae anicteric, neck supple, no rigidity , no JVD CV - regular S1 and S2, no murmurs, rubs or gallops Chest - clear b/l, good air entry, no wheezes Abdomen - soft, non-tender, non-distended, BS present Extremities - no edema, + peripheral pulses, warm and well-perfused Neuro -unchanged, awake, alert, oriented 3, pupils are equal and reactive, EOMI , smile is symmetric, tongue is midline, shrugs shoulders, no pronator drift, motor 5/5 overall extremities, sensation is intact A/P Assessment and Plan 1. Right basal ganglia intraparenchymal hemorrhage -stable on repeat CAT scan. MRI done, and what was thought to be a left frontal intraparenchymal hemorrhage is actually a left frontal venous angioma 2. Hypertension - off meds over the last 2 months 3. Hypokalemia -resolved 1. Restart home meds gradually. Start amlodipine and valsartan for now 2. Labetalol and hydralazine as needed 3. Keep head of the bed elevated, maintain normothermia, avoid agitation 4. Avoid antiplatelets and NSAIDs 5. On diet 6. GI prophylaxis 7. DVT prophylaxis with SCDs. Will hold pharmacologic DVT prophylaxis due to hemorrhage Patient does not require ICU level of care therefore we will transition care to hospitalist service. Please call back with questions or if additional help is needed. Thank you. Discussed in detail with patient and her . Cirilo Calhoun MD Oct 01, 2017 13:52
--- NOTE | 2017-10-01 14:19 | HHI.NSPN ---
History Chief Complaint: Brain hemorrhage Interval History Nurses report patient has been doing well and is stable. Patient denies any problems at the present time. She has been ambulating to the bathroom System Review Comments No change Exam Results Vital Signs Date Time Temp Pulse Resp B/P (MAP) Pulse Ox O2 Delivery O2 Flow Rate FiO2 10/01/17 12:00 93 10/01/17 12:00 99.6 20 144/77 (99) 95 10/01/17 08:23 21 10/01/17 07:00 Room Air Intake and Output 10/01/17 10/01/17 10/02/17 08:00 16:00 00:00 Intake Total 960 ml Output Total 950 ml Balance 10 ml Physical Examination Alert and awake. Follows commands well. Speech with mild hesitation Mild left hemiparesis Lab, Micro, Other Results CT scan appears stable. MRI shows evidence of the basal ganglia hemorrhage and evidence of a possible venous angioma Medical Decision Making Impression and Plan Patient is stable and doing well May transfer from ICU. Have discussed with patient and the need for blood pressure control Ángel Gan MD Oct 01, 2017 14:19
[2017-10-01] MEDS ORDERED: ENALAPRILAT 1.25 MG/ML VIAL IV PUSH PRN (14:45)
[2017-10-01 17:56] LABS: BASOPHIL # 0.1 TH/MM3 (0-0.2); EOSINOPHIL % 0.4 % (0.0-4.0); HEMATOCRIT 41.8 % (35.0-46.0); LYMPH % 21.8 % (9.0-44.0); LYMPHOCYTE # 1.3 TH/MM3 (1.0-4.8); MEAN CORPUSCULAR HEMOGLOBIN 31.2 PG (27.0-34.0); MEAN CORPUSCULAR HGB CONC 33.5 % (32.0-36.0); MEAN PLATELET VOLUME 7.3 FL (7.0-11.0); MONOCYTE # 0.4 TH/MM3 (0-0.9); NEUT % 69.8 % (16.0-70.0); PLATELET COUNT 257 TH/MM3 (150-450); RED BLOOD COUNT 4.49 MIL/MM3 (4.00-5.30); RED CELL DISTRIBUTION WIDTH 13.5 % (11.6-17.2); WHITE BLOOD COUNT 5.8 TH/MM3 (4.0-11.0)
[2017-10-01 18:23] LABS: ALBUMIN 3.7 GM/DL (3.4-5.0); AST (GOT) 14 U/L (15-37); BICARBONATE 26.8 MEQ/L (21.0-32.0); BLOOD UREA NITROGEN 10 MG/DL (7-18); CALCIUM 8.5 MG/DL (8.5-10.1); CHLORIDE 105 MEQ/L (98-107); CREATININE 0.76 MG/DL (0.50-1.00); GLOMERULAR FILTRATION RATE 80 ML/MIN (>89); GLUCOSE,RANDOM 102 MG/DL (74-106); MAGNESIUM 1.9 MG/DL (1.5-2.5); SODIUM (NA) 141 MEQ/L (136-145)
[2017-10-01 18:24] LABS: ALT (GPT) 16 U/L (10-53); PHOSPHORUS 2.8 MG/DL (2.5-4.9)
[2017-10-01 18:26] LABS: ALKALINE PHOSPHATASE 43 U/L (45-117); TOTAL BILIRUBIN ADULT 0.6 MG/DL (0.2-1.0); TOTAL PROTEIN 7.9 GM/DL (6.4-8.2)
[2017-10-02] MEDS: CHLORHEXIDINE GLUCONATE 2 % 1 PACK (2 CLOTHS) TOP SCH (04:00)
[2017-10-02 04:18] VITALS: BP 128/72; PULSE 85; RESP 14; TEMP 98; O2SAT 99
[2017-10-02 07:46] LABS: AUTOMATED NEUTROPHIL # 2.9 TH/MM3 (1.8-7.7); BASOPHIL # 0.1 TH/MM3 (0-0.2); BASOPHIL % 1.8 % (0.0-2.0); EOSINOPHIL # 0.1 TH/MM3 (0-0.4); EOSINOPHIL % 1.2 % (0.0-4.0); HEMATOCRIT 40.1 % (35.0-46.0); HEMOGLOBIN 13.7 GM/DL (11.6-15.3); LYMPH % 28.2 % (9.0-44.0); LYMPHOCYTE # 1.4 TH/MM3 (1.0-4.8); MEAN CELL VOLUME 92.5 FL (80.0-100.0); MEAN CORPUSCULAR HEMOGLOBIN 31.7 PG (27.0-34.0); MEAN CORPUSCULAR HGB CONC 34.3 % (32.0-36.0); MEAN PLATELET VOLUME 7.1 FL (7.0-11.0); MONO % 7.8 % (0.0-8.0); MONOCYTE # 0.4 TH/MM3 (0-0.9); PLATELET COUNT 240 TH/MM3 (150-450); RED BLOOD COUNT 4.33 MIL/MM3 (4.00-5.30); RED CELL DISTRIBUTION WIDTH 13.6 % (11.6-17.2); WHITE BLOOD COUNT 4.8 TH/MM3 (4.0-11.0)
[2017-10-02 08:00] VITALS: BP 158/86; PULSE 84; RESP 18; TEMP 98.6; O2SAT 96
[2017-10-02 08:15] LABS: ALBUMIN 3.5 GM/DL (3.4-5.0); AST (GOT) 15 U/L (15-37); BICARBONATE 25.8 MEQ/L (21.0-32.0); BLOOD UREA NITROGEN 10 MG/DL (7-18); CALCIUM 8.7 MG/DL (8.5-10.1); CHLORIDE 105 MEQ/L (98-107); CREATININE 0.59 MG/DL (0.50-1.00); GLOMERULAR FILTRATION RATE 107 ML/MIN (>89); GLUCOSE,RANDOM 87 MG/DL (74-106); MAGNESIUM 1.9 MG/DL (1.5-2.5); SODIUM (NA) 140 MEQ/L (136-145)
[2017-10-02 08:19] LABS: ALKALINE PHOSPHATASE 40 U/L (45-117); ALT (GPT) 16 U/L (10-53); PHOSPHORUS 3.1 MG/DL (2.5-4.9); TOTAL BILIRUBIN ADULT 0.6 MG/DL (0.2-1.0); TOTAL PROTEIN 7.5 GM/DL (6.4-8.2)
[2017-10-02] MEDS: VALSARTAN 160 MG TAB PO SCH (09:56)
[2017-10-02] MEDS: FAMOTIDINE 20 MG TAB PO SCH ×2 (09:56→21:14)
[2017-10-02] MEDS: DOCUSATE SODIUM 50 MG/SENNA 8.6 MG TAB PO SCH ×2 (09:56→21:14)
[2017-10-02 12:00] VITALS: BP 138/76; PULSE 87; RESP 18; TEMP 98.6; O2SAT 96
--- NOTE | 2017-10-02 14:47 | HHI.PR ---
Subjective Remarks 52-year-old female who suffered a spontaneous multifocal parenchymal hemorrhages. She initially had some left sided weakness and delay of speech, both of those have cleared and what remains is very slight left hand weakness. She denies being on any blood thinners. She has no other complaints. Objective Vitals Vital Signs Date Time Temp Pulse Resp B/P (MAP) Pulse Ox O2 Delivery O2 Flow Rate FiO2 10/02/17 12:00 98.6 87 18 138/76 (96) 96 10/02/17 08:00 98.6 84 18 158/86 (110) 96 10/02/17 04:18 98.0 85 14 128/72 (90) 99 10/01/17 23:35 98.5 92 14 142/78 (99) 98 10/01/17 21:12 98.0 91 16 144/76 (98) 98 10/01/17 16:00 98.2 93 18 128/70 (89) 100 I/O 10/01/17 10/01/17 10/01/17 10/02/17 10/02/17 10/02/17 07:00 15:00 23:00 07:00 15:00 23:00 Intake Total 960 ml Output Total 950 ml Balance 10 ml Intake Oral 960 ml Output Urine Total 950 ml # Voids 3 Result Diagram: 10/02/17 0629 10/02/17 0629 Objective Remarks GENERAL: Well-nourished, well-developed patient. SKIN: Warm and dry. HEAD: Normocephalic. EYES: No scleral icterus. No injection or drainage. NECK: Supple, trachea midline. No JVD or lymphadenopathy. CARDIOVASCULAR: Regular rate and rhythm without murmurs, gallops, or rubs. RESPIRATORY: Breath sounds equal bilaterally. No accessory muscle use. GASTROINTESTINAL: Abdomen soft, non-tender, nondistended. EXTREMITIES: No cyanosis, or edema. NEUROLOGICAL: Awake, alert, and oriented x 3. Speech is intact. Pupils equal round and reactive upper and lower extremities are 5 out of 5 strength. There is only a slight decrease on the left in her finger strength compared to her right. A/P Problem List: (1) Intracranial hemorrhage ICD Code: I62.9 - Nontraumatic intracranial hemorrhage, unspecified Status: Acute Assessment and Plan Intracranial hemorrhage Repeat CT brain shows areas were bleed occurred It was a basal ganglia intraparenchymal hemorrhage with evidence of a possible venous angioma She was recommended to avoid all aspirin or NSAIDs I also cautioned her about certain vitamins including ginseng and ginkgo preparations h/o hypertension Patient admits to being off all meds for the last 2 months She has no insurance at this time Begin home meds gradually, amlodipine and valsartan started Labetalol and hydralazine as needed DVT prophylaxis SCDs Discharge disposition Patient looks great following an event that could have resulted in a far worse outcome We will look to neurosurgery and/or neurology for timing of discharge She is currently uninsured so follow-up may be difficult as outpatient Jac Fajardo MD Oct 02, 2017 14:47
[2017-10-02 16:00] VITALS: BP 136/74; PULSE 94; RESP 18; TEMP 98; O2SAT 96
--- NOTE | 2017-10-02 19:23 | HHI.NSPN ---
History Chief Complaint: Brain hemorrhage Interval History Nurses report patient has been doing well and is stable. Patient denies any problems at the present time. She has been ambulating to the bathroom Exam Results Vital Signs Date Time Temp Pulse Resp B/P (MAP) Pulse Ox O2 Delivery O2 Flow Rate FiO2 10/02/17 16:00 98.0 94 18 136/74 (94) 96 10/01/17 08:23 21 10/01/17 07:00 Room Air Physical Examination Alert and awake. Follows commands well. Fluent speech. Ambulation mild instability. Moves all extremities well Medical Decision Making Impression and Plan Patient is stable and doing well We will have physical therapy evaluate patient ambulation. Ángel Gan MD Oct 02, 2017 19:23
[2017-10-02 20:00] VITALS: BP 142/78; PULSE 92; RESP 18; TEMP 97.9; O2SAT 99
[2017-10-03] VITALS: BP 149/71; PULSE 86; PULSE 87; RESP 18; TEMP 97.5; TEMP 97.8; O2SAT 98; O2SAT 99
[2017-10-03 04:00] VITALS: BP 156/84; PULSE 86; RESP 18; TEMP 97.8; O2SAT 98
[2017-10-03] MEDS: CHLORHEXIDINE GLUCONATE 2 % 1 PACK (2 CLOTHS) TOP SCH (04:00)
[2017-10-03 08:00] VITALS: BP 149/82; PULSE 92; RESP 18; TEMP 98; O2SAT 98
[2017-10-03] MEDS: VALSARTAN 160 MG TAB PO SCH (08:54)
[2017-10-03] MEDS: FAMOTIDINE 20 MG TAB PO SCH ×2 (08:54→21:00)
[2017-10-03] MEDS: DOCUSATE SODIUM 50 MG/SENNA 8.6 MG TAB PO SCH ×2 (08:55→21:00)
[2017-10-03 09:35] LABS: AUTOMATED NEUTROPHIL # 2.8 TH/MM3 (1.8-7.7); BASOPHIL # 0.1 TH/MM3 (0-0.2); BASOPHIL % 1.4 % (0.0-2.0); EOSINOPHIL # 0.1 TH/MM3 (0-0.4); EOSINOPHIL % 1.8 % (0.0-4.0); HEMATOCRIT 45.3 % (35.0-46.0); HEMOGLOBIN 15.5 GM/DL (11.6-15.3); LYMPH % 25.1 % (9.0-44.0); LYMPHOCYTE # 1.1 TH/MM3 (1.0-4.8); MEAN CELL VOLUME 92.5 FL (80.0-100.0); MEAN CORPUSCULAR HEMOGLOBIN 31.6 PG (27.0-34.0); MEAN CORPUSCULAR HGB CONC 34.2 % (32.0-36.0); MEAN PLATELET VOLUME 7.2 FL (7.0-11.0); MONO % 7.1 % (0.0-8.0); MONOCYTE # 0.3 TH/MM3 (0-0.9); NEUT % 64.6 % (16.0-70.0); PLATELET COUNT 253 TH/MM3 (150-450); RED BLOOD COUNT 4.89 MIL/MM3 (4.00-5.30); RED CELL DISTRIBUTION WIDTH 13.2 % (11.6-17.2); WHITE BLOOD COUNT 4.4 TH/MM3 (4.0-11.0)
[2017-10-03 10:06] LABS: ALBUMIN 3.9 GM/DL (3.4-5.0); BICARBONATE 27.4 MEQ/L (21.0-32.0); BLOOD UREA NITROGEN 12 MG/DL (7-18); CHLORIDE 102 MEQ/L (98-107); CREATININE 0.66 MG/DL (0.50-1.00); GLOMERULAR FILTRATION RATE 94 ML/MIN (>89); GLUCOSE,RANDOM 91 MG/DL (74-106); MAGNESIUM 2.2 MG/DL (1.5-2.5); SODIUM (NA) 139 MEQ/L (136-145)
[2017-10-03 10:16] LABS: ALKALINE PHOSPHATASE 46 U/L (45-117); ALT (GPT) 16 U/L (10-53); AST (GOT) 19 U/L (15-37); PHOSPHORUS 3.2 MG/DL (2.5-4.9); TOTAL BILIRUBIN ADULT 0.5 MG/DL (0.2-1.0); TOTAL PROTEIN 8.3 GM/DL (6.4-8.2)
[2017-10-03 12:00] VITALS: BP 131/82; PULSE 106; RESP 18; TEMP 98.1; O2SAT 99
[2017-10-03] MEDS ORDERED: PILL SPLITTER OTHER PRN (13:45)
[2017-10-03] MEDS: METOPROLOL TARTRATE 25 MG TAB PO SCH ×2 (14:25→21:00)
--- NOTE | 2017-10-03 14:28 | HHI.NSPN ---
History Chief Complaint: Brain hemorrhage Interval History Nurses report patient has been doing well and is stable. Patient had episode of vomiting after lunch and now has a mild headache Exam Results Vital Signs Date Time Temp Pulse Resp B/P (MAP) Pulse Ox O2 Delivery O2 Flow Rate FiO2 10/03/17 12:00 98.1 106 18 131/82 (98) 99 10/01/17 08:23 21 10/01/17 07:00 Room Air Physical Examination Alert and awake. Follows commands well. Fluent speech. Ambulation mild instability. Moves all extremities well Medical Decision Making Impression and Plan Patient is stable and doing well Physical therapy has evaluated the patient started her on some exercises Ángel Gan MD Oct 03, 2017 14:28
--- NOTE | 2017-10-03 14:45 | HHI.PR ---
Subjective Remarks Patient complains of left calf pain today. She is anxious about it and her heart rate is up. She denies any fevers or shortness of breath. Objective Vitals Vital Signs Date Time Temp Pulse Resp B/P (MAP) Pulse Ox O2 Delivery O2 Flow Rate FiO2 10/03/17 12:00 98.1 106 18 131/82 (98) 99 10/03/17 08:00 98.0 92 18 149/82 (104) 98 10/03/17 04:00 97.8 86 18 156/84 (108) 98 10/03/17 00:00 97.8 86 18 149/71 (97) 98 10/02/17 20:00 97.9 92 18 142/78 (99) 99 10/02/17 16:00 98.0 94 18 136/74 (94) 96 I/O 10/02/17 10/02/17 10/02/17 10/03/17 10/03/17 10/03/17 07:00 15:00 23:00 07:00 15:00 23:00 # Voids 3 3 # Bowel Movements 0 Result Diagram: 10/03/17 0758 10/03/17 0758 Objective Remarks GENERAL: Well-nourished, well-developed patient. SKIN: Warm and dry. HEAD: Normocephalic. EYES: No scleral icterus. No injection or drainage. NECK: Supple, trachea midline. No JVD or lymphadenopathy. CARDIOVASCULAR: Regular rate and rhythm without murmurs, gallops, or rubs. RESPIRATORY: Breath sounds equal bilaterally. No accessory muscle use. GASTROINTESTINAL: Abdomen soft, non-tender, nondistended. EXTREMITIES: Calf is nontender to palpation, negative Homans sign, no edema, no erythema, no lumps, or knots, or cords. NEUROLOGICAL: Awake, alert, and oriented x 3. Speech is intact. Pupils equal round and reactive upper and lower extremities are 5 out of 5 strength. There is only a slight decrease on the left in her finger strength compared to her right. A/P Problem List: (1) Intracranial hemorrhage ICD Code: I62.9 - Nontraumatic intracranial hemorrhage, unspecified Status: Acute Assessment and Plan Intracranial hemorrhage Repeat CT brain shows areas were bleed occurred It was a basal ganglia intraparenchymal hemorrhage with evidence of a possible venous angioma She was recommended to avoid all aspirin or NSAIDs Also cautioned her about certain vitamins including ginseng and ginkgo preparations She is left with minor weakness in the left hand and left lower extremity. Small amount of speech slowing. But she remains ambulatory and verbal, highly functional, without obvious deficit Tachycardia Appears to be sinus tachycardia, no evidence of arrhythmia Will stop her amlodipine and replace it with low-dose metoprolol to help control her overall rate h/o hypertension Patient admits to being off all meds for the last 2 months She has no insurance at this time Begin home meds gradually, amlodipine and valsartan started Labetalol and hydralazine as needed DVT prophylaxis SCDs Discharge disposition Patient looks great following an event that could have resulted in a far worse outcome We will look to neurosurgery and/or neurology for timing of discharge She is currently uninsured so follow-up may be difficult as outpatient Jac Fajardo MD Oct 03, 2017 14:44
[2017-10-03 16:00] VITALS: BP 118/66; PULSE 86; RESP 18; TEMP 98.3; O2SAT 100
[2017-10-03 20:00] VITALS: BP 154/79; PULSE 78; RESP 18; TEMP 98.1; O2SAT 98
[2017-10-04] VITALS (8 sets, daily range): BP systolic 129–152; BP diastolic 63–89; PULSE 61–88; RESP 16–19; TEMP 97.4–98.2; O2SAT 97–100
[2017-10-04] MEDS: CHLORHEXIDINE GLUCONATE 2 % 1 PACK (2 CLOTHS) TOP SCH (03:37)
[2017-10-04] MEDS: ACETAMINOPHEN 325 MG TAB PO PRN ×2 (04:18→18:01)
[2017-10-04 07:08] LABS: ALBUMIN 3.8 GM/DL (3.4-5.0); ALT (GPT) 15 U/L (10-53); AST (GOT) 13 U/L (15-37); BICARBONATE 26.9 MEQ/L (21.0-32.0); BLOOD UREA NITROGEN 14 MG/DL (7-18); CALCIUM 9.4 MG/DL (8.5-10.1); CHLORIDE 104 MEQ/L (98-107); CREATININE 0.76 MG/DL (0.50-1.00); GLOMERULAR FILTRATION RATE 80 ML/MIN (>89); GLUCOSE,RANDOM 96 MG/DL (74-106); MAGNESIUM 2.1 MG/DL (1.5-2.5); SODIUM (NA) 139 MEQ/L (136-145)
[2017-10-04 07:09] LABS: PHOSPHORUS 3.9 MG/DL (2.5-4.9)
[2017-10-04 07:10] LABS: ALKALINE PHOSPHATASE 48 U/L (45-117); TOTAL BILIRUBIN ADULT 0.7 MG/DL (0.2-1.0); TOTAL PROTEIN 8.2 GM/DL (6.4-8.2)
[2017-10-04 07:14] LABS: AUTOMATED NEUTROPHIL # 3.7 TH/MM3 (1.8-7.7); BASOPHIL # 0.1 TH/MM3 (0-0.2); BASOPHIL % 1.2 % (0.0-2.0); EOSINOPHIL # 0.1 TH/MM3 (0-0.4); EOSINOPHIL % 1.9 % (0.0-4.0); HEMATOCRIT 45.2 % (35.0-46.0); HEMOGLOBIN 15.6 GM/DL (11.6-15.3); LYMPH % 14.2 % (9.0-44.0); LYMPHOCYTE # 0.7 TH/MM3 (1.0-4.8); MEAN CELL VOLUME 92.3 FL (80.0-100.0); MEAN CORPUSCULAR HEMOGLOBIN 31.9 PG (27.0-34.0); MEAN CORPUSCULAR HGB CONC 34.5 % (32.0-36.0); MEAN PLATELET VOLUME 7.3 FL (7.0-11.0); MONO % 8.5 % (0.0-8.0); MONOCYTE # 0.4 TH/MM3 (0-0.9); NEUT % 74.2 % (16.0-70.0); PLATELET COUNT 259 TH/MM3 (150-450); RED CELL DISTRIBUTION WIDTH 13.1 % (11.6-17.2); WHITE BLOOD COUNT 5.1 TH/MM3 (4.0-11.0)
--- NOTE | 2017-10-04 07:17 | HHI.PR ---
Subjective Remarks bp up a bitstill Objective Vital Signs Date Time Temp Pulse Resp B/P (MAP) Pulse Ox O2 Delivery O2 Flow Rate FiO2 10/04/17 04:00 98.0 86 18 130/75 (93) 99 10/04/17 00:00 97.8 74 18 142/76 (98) 97 10/03/17 20:00 98.1 78 18 154/79 (104) 98 10/03/17 16:00 98.3 86 18 118/66 (83) 100 10/03/17 12:00 98.1 106 18 131/82 (98) 99 10/03/17 08:00 98.0 92 18 149/82 (104) 98 I/O 10/03/17 10/03/17 10/03/17 10/04/17 10/04/17 10/04/17 07:00 15:00 23:00 07:00 15:00 23:00 # Voids 3 2 Result Diagram: 10/04/17 0544 10/04/17 0544 Objective Remarks ox3 alert 5/5 vff face sym wiggle left hand nl Assessment and Plan Assessment and Plan imp right ich acute the left frontal bleed may be old left venous angioma mrv ok lab ok we will repeat the mri in 8 weeks there is some enhancement of the middle of the r ich ow neurowise ok and will defer to [facility] 10/04/17 echo nl no zazueta now but had zazueta and nv yest plan is to get bp to run 120/70 on bp meds and recheck mri and if stable copuld dc ?in am when bp lower? Karel Manzo MD Oct 04, 2017 07:17
[2017-10-04] MEDS: DOCUSATE SODIUM 50 MG/SENNA 8.6 MG TAB PO SCH ×2 (08:00→20:31)
[2017-10-04] MEDS: FAMOTIDINE 20 MG TAB PO SCH ×2 (08:00→20:32)
[2017-10-04] MEDS: METOPROLOL TARTRATE 25 MG TAB PO SCH ×2 (08:00→20:31)
[2017-10-04] MEDS: VALSARTAN 160 MG TAB PO SCH (08:01)
--- NOTE | 2017-10-04 10:32 | RADRPT ---
EXAM DATE/TIME: 10/04/2017 10:08 [facility] COMPARISON: MRI BRAIN W & W/O CONTRAST, September 30, 2017, 14:20. INDICATIONS : Bleed. MEDICAL HISTORY : None. SURGICAL HISTORY : Cholecystectomy. Ankle surgery. ENCOUNTER: Initial ACUITY: 3 day PAIN SCORE: 2/10 LOCATION: head TECHNIQUE: Multiplanar, multisequence MRI of the brain was performed without contrast. FINDINGS: Evolving right basal ganglia hematoma is again noted. No significant change in hemispheric mass effec t. Hemosiderin deposition adjacent to the left caudate head is also unchanged. Patchy T2 prolongation elsewhere in the periventricular white matter appears stable. No new acute findings are identified. CONCLUSION: Evolving right basal ganglia hematoma. Stanton Greenberg MD on October 04, 2017 at 10:27 Board Certified Radiologist. This report was verified electronically.
[2017-10-04 11:35] LABS: ANA SCREEN POS (NEG)
[2017-10-04] MEDS ORDERED: METOPROLOL TARTRATE 25 MG TAB PO ONE (11:45)
--- NOTE | 2017-10-04 13:33 | HHI.NSPN ---
(Janet Whitten) Note Status Status: Progress Note (Janet Whitten) Interval History Interval History This is a 52-year-old lady with history of hypertension. She has apparently been off her medications for the last 2 months. She presented to [facility] emergency department complaining of weakness over the left hand and left leg. She started feeling some numbness over the left upper extremity yesterday night before going to bed, and this morning upon awakening she felt increasing weakness over the left side, dropping things from her left hand and and having difficulty walking due to left leg weakness. In addition she had headaches with sensation of pressure and nauseas but no vomiting. She denies any prior episodes. She denies blurry vision, no photophobia, no vomiting. No loss of consciousness. No seizure activity. no tongue bitting. No incontinence of stool or urine. No prior history of stroke. In emergency department she underwent a CT head that showed multifocal parenchymal hemorrhages with the largest hematoma approximately 4 cm in the right basal ganglia.She was transferred to [facility] for neurosurgery evaluation. Left- sided weakness improving 09/30: reports headaches a bit better today, also improvement of left side strength, stable numbness. denies vomiting, chest pain, vision changes, seizures. 10/04: Doing well, mild headaches. Continues to report of mild weakness in the left hand with some paresthesias, however improved compared to exam upon arrival. (Janet Whitten) Labs, Micro, & Vital Signs Results Date Time Temp Pulse Resp B/P (MAP) Pulse Ox O2 Delivery O2 Flow Rate FiO2 10/04/17 12:06 97.7 82 18 129/68 (88) 98 10/04/17 07:50 97.4 88 18 144/77 (99) 97 10/04/17 04:00 98.0 86 18 130/75 (93) 99 10/04/17 00:00 97.8 74 18 142/76 (98) 97 10/03/17 20:00 98.1 78 18 154/79 (104) 98 10/03/17 16:00 98.3 86 18 118/66 (83) 100 Constitutional Vital Signs Date Time Temp Pulse Resp B/P (MAP) Pulse Ox O2 Delivery O2 Flow Rate FiO2 10/04/17 12:06 97.7 82 18 129/68 (88) 98 10/04/17 07:50 97.4 88 18 144/77 (99) 97 10/04/17 04:00 98.0 86 18 130/75 (93) 99 10/04/17 00:00 97.8 74 18 142/76 (98) 97 10/03/17 20:00 98.1 78 18 154/79 (104) 98 10/03/17 16:00 98.3 86 18 118/66 (83) 100 (Janet Whitten) Review of Systems Constitutional: DENIES: Fever, Chills Respiratory: DENIES: Hemoptysis, Shortness of breath Cardiovascular: DENIES: Chest pain Musculoskeletal: DENIES: Neck pain Neurologic: COMPLAINS OF: Headache, Localized weakness, Paresthesias, DENIES: Seizures, Speech Problems (Janet Whitten) Physical Exam General: well nourished female, in no acute distress. HEENT: normocephalic, atraumatic. Pupils equal. Nonicteric sclera. Neuro: Alert, awake and oriented to time, place and person. Speech is fluent. Follows commands without apraxia. Cranial nerve examination: pupils equal, round and reactive to light. Extra-ocular movements are intact. Facial motor and sensory function are normal and symmetrical. Gross hearing appears intact. Sternocleidomastoid and trapezius muscles are symmetrical. Other cranial nerves are intact. Neck is soft and supple with a good range of motion without pain. Muscle strength with good strength right upper and lower extremities, with mild left hemiparesis. Sensory examination is intact to light touch in both the upper and lower extremities. Deep tendon reflexes are symmetrical in both upper and lower extremities. There is a bilateral plantar flexion response. Cerebellar examination is unremarkable, without deficits. Heart: regular rate, rhythm Resp: clear, no wheezes, nonlabored breathing Skin: warm, dry (Janet Whitten) General: well nourished female, in no acute distress. HEENT: normocephalic, atraumatic. Pupils equal. Nonicteric sclera. Neuro: Alert, awake and oriented to time, place and person. Speech is fluent. Follows commands without apraxia. Cranial nerve examination: pupils equal, round and reactive to light. Extra-ocular movements are intact. Facial motor and sensory function are normal and symmetrical. Gross hearing appears intact. Sternocleidomastoid and trapezius muscles are symmetrical. Other cranial nerves are intact. Neck is soft and supple with a good range of motion without pain. Muscle strength with good strength right upper and lower extremities, with mild left hemiparesis. Sensory examination is intact to light touch in both the upper and lower extremities. Deep tendon reflexes are symmetrical in both upper and lower extremities. There is a bilateral plantar flexion response. Cerebellar examination is unremarkable, without deficits. Heart: regular rate, rhythm Resp: clear, no wheezes, nonlabored breathing Skin: warm, dry (Harshil Pang MD) Medications Current Medications Current Medications Medications (Trade) Dose Ordered Sig/Jovany Route PRN Reason Start Time Stop Time Status Last Admin Dose Admin Acetaminophen (Tylenol) 650 mg Q6H PRN PO PAIN 1-4 AND/OR FEVER >100.4F 09/29/17 16:45 10/04/17 04:18 Oxycodone/ Acetaminophen (Percocet 5-325 Mg) 1 tab Q4H PRN PO PAIN SCALE 5 TO 10 09/29/17 16:45 09/30/17 21:25 Famotidine (Pepcid) 20 mg Q12HR PO 09/29/17 21:00 10/04/17 08:00 Albuterol/ Ipratropium (Duoneb Neb) 1 ampule Q4HR NEB PRN INH WHEEZING 09/29/17 16:45 10/04/17 04:04 Miscellaneous Information 1 Q361D XX 09/29/17 16:45 09/29/17 18:26 Chlorhexidine Gluconate (Chlorhexidine 2% Cloth) 3 pack Taper DAILY@04 TOP 09/30/17 04:00 09/26/18 03:59 10/01/17 04:00 Chlorhexidine Gluconate (Chlorhexidine 2% Cloth) 3 pack UNSCH PRN TOP HYGIENIC CARE 09/29/17 16:45 Senna/Docusate Sodium (Paula-Colace) 1 tab BID PO 09/29/17 21:00 3/26/18 08:00 Magnesium Hydroxide (Milk Of Magnesia Liq) 30 ml Q12H PRN PO Mild constipation 09/29/17 16:45 Valsartan (Diovan) 160 mg DAILY PO 10/01/17 09:00 10/04/17 08:01 Enalaprilat (Vasotec Inj) 1.25 mg Q8H PRN IV PUSH SBP > 160 10/01/17 14:45 Miscellaneous (Pill Splitter) 1 ea UNSCH PRN OTHER SEE LABEL COMMENTS 10/03/17 13:45 Metoprolol Tartrate (Lopressor) 25 mg Q12HR PO 10/04/17 21:00 (Janet Whitten) Current Medications As above Consunie nonoperative supportive care Daily PT The exam, history, and the medical decision-making described in the above note were completed with the assistance of the mid-level provider. I reviewed and agree with the findings presented. I attest that I had a [id number] encounter with the patient on the same day, and personally performed and documented my assessment and findings in the medical record. (Harshil Pang MD) Medical Decision Making MDM Remarks 52 year old female with right basal ganglia hemorrhage, most likely hypertensive in etiology, no evidence of underlying aneurysm or AVM on the right. incidental finding of left frontal venous angioma Last Impressions Head/Brain Mag Res Venography 09/30/17 0000 Signed Impressions: Service Date/Time: September 14:20 - CONCLUSION: Left frontal venous angioma Stanton Greenberg MD Head CT 09/30/17 0000 Signed Impressions: Service Date/Time: September 18:16 - CONCLUSION: 1. Stable hemorrhage right basal ganglia. Improved hemorrhage left frontal lobe deep white matter. Lowell Vidales MD Brain MRI 09/30/17 0000 Signed Impressions: Service Date/Time: September 14:20 - CONCLUSION: Subacute age right basal ganglia hematoma without findings to suggest underlying vascular or neoplastic lesion. Left frontal venous angioma with small area of adjacent hemosiderin signal. No other new acute findings. Stanton Greenberg MD Neck CTA 09/29/17 1031 Signed Impressions: Service Date/Time: Friday, September 29, 2017 13:23 - CONCLUSION: Negative study Stanton Greenberg MD Head CTA 09/29/17 1031 Signed Impressions: Service Date/Time: Friday, September 29, 2017 13:23 - CONCLUSION: 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 No suspicious findings on the right. Stanton Greenberg MD Chest X-Ray 09/29/17 1031 Signed Impressions: Service Date/Time: Friday, September 29, 2017 10:52 - CONCLUSION: No acute disease. Stanton Greenberg MD (Janet Whitten) Plan Plan Remarks cont nonoperative management neurological exam stable follow-up CT brain reviewed, stable intracranial hemorrhage continue medical management, blood pressure control continue PT, OT clear to discharge once medically stable from neurosurgery standpoint, will sign off, call as needed (Janet Whitten) Janet Whitten Oct 04, 2017 13:33 Harshil Pang MD Oct 04, 2017 19:33
--- NOTE | 2017-10-04 16:14 | HHI.PR ---
Subjective Remarks We had a discussion regarding physical therapy activities today. Patient has no insurance ,however, she has a niece who is a physical therapist. She states she has no headaches, no fevers, no neurological changes. Objective Vitals Vital Signs Date Time Temp Pulse Resp B/P (MAP) Pulse Ox O2 Delivery O2 Flow Rate FiO2 10/04/17 12:06 97.7 82 18 129/68 (88) 98 10/04/17 07:50 97.4 88 18 144/77 (99) 97 10/04/17 04:00 98.0 86 18 130/75 (93) 99 10/04/17 00:00 97.8 74 18 142/76 (98) 97 10/03/17 20:00 98.1 78 18 154/79 (104) 98 I/O 10/03/17 10/03/17 10/03/17 10/04/17 10/04/17 10/04/17 07:00 15:00 23:00 07:00 15:00 23:00 # Voids 3 2 Result Diagram: 10/04/17 0544 10/04/17 0544 Objective Remarks GENERAL: Well-nourished, well-developed patient. SKIN: Warm and dry. HEAD: Normocephalic. EYES: No scleral icterus. No injection or drainage. NECK: Supple, trachea midline. No JVD or lymphadenopathy. CARDIOVASCULAR: Regular rate and rhythm without murmurs, gallops, or rubs. RESPIRATORY: Breath sounds equal bilaterally. No accessory muscle use. GASTROINTESTINAL: Abdomen soft, non-tender, nondistended. EXTREMITIES: Calf is nontender to palpation, negative Homans sign, no edema, no erythema, no lumps, or knots, or cords. NEUROLOGICAL: Awake, alert, and oriented x 3. Speech is intact. Pupils equal round and reactive upper and lower extremities are 5 out of 5 strength. There is only a slight decrease on the left in her finger strength compared to her right. A/P Problem List: (1) Intracranial hemorrhage ICD Code: I62.9 - Nontraumatic intracranial hemorrhage, unspecified Status: Acute Assessment and Plan Intracranial hemorrhage Repeat CT brain shows areas were bleed occurred It was a basal ganglia intraparenchymal hemorrhage with evidence of a possible venous angioma She was recommended to avoid all aspirin or NSAIDs Also cautioned her about certain vitamins including ginseng and ginkgo preparations She is left with minor weakness in the left hand and left lower extremity. Small amount of speech slowing. But she remains ambulatory and verbal, highly functional, without obvious deficit Tachycardia Appears to be sinus tachycardia, no evidence of arrhythmia Metoprolol increased from 12.5 mg to 25 mg twice daily h/o hypertension Patient admits to being off all meds for the last 2 months She has no insurance at this time Controlling with the losartan and metoprolol Labetalol and hydralazine PRN DVT prophylaxis SCDs Discharge disposition Patient looks great following an event that could have resulted in a far worse outcome We will look to neurosurgery and/or neurology for timing of discharge Patient states her niece is a physical therapist and will be helping her after discharge. Jac Fajardo MD Oct 04, 2017 16:14
[2017-10-04 17:38] LABS: ALB/GLOB RATIO (SPE) 1.45 (1.39-2.23)
--- NOTE | 2017-10-05 00:36 | HM ---
Date Performed: 09/30/2017 Time Performed: 19:07:00 HOOKUP DATE: 09/30/17 07:07:00 PM [facility] ANALYSIS START TIME: 09/30/2017 7:12:00 PM ANALYSIS END TIME: 10/01/2017 7:16:00 PM PATIENT AGE: 52 PATIENT HEIGHT: 59 PATIENT WEIGHT: 97 DRUG LIST PATIENT DIAGNOSIS: MULTIFOCAL INTRACRANIAL HEMORRHASE TEST NARRATIVE: The patient's average heart rate was 95 BPM. Heart rates greater than 120 B PM were noted < 1% of the time. No episodes of bradycardia were noted. No pauses exceeding 2.0 s econds were noted. 3 ventricular ectopics, which represented < 1% of the total beat count, were n oted. The highest ventricular ectopic frequency occurred from 08:00 PM to 09:00 PM Harriett. During this time 2 VE(s) occurred. Ventricular ectopics were observed as 3 isolated beat(s) only. No couplets or runs were noted. 1 supraventricular ectopics, which represented < 1% of the total beat count, were noted. The highest supraventricular ectopic frequency occurred from 07:00 PM to 08:00 PM Harriett. During this time 1 SVE(s) occurred. No episodes of ST depression (defined as -1.0 mm or more) wer e noted in channel 1. No episodes of ST depression (defined as -1.0 mm or more) were noted in channe l 2. No episodes of ST depression (defined as -1.0 mm or more) were noted in channel 3. TEST INTERPRETATION: Sinus rhythm Rare PACs Rare PVCs No pauswe No ventricuklar tachycardia No supraventricular tachycardioa reported There was no entry in the diary Si gned by : Angela Chairez
[2017-10-05] MEDS: ACETAMINOPHEN 325 MG TAB PO PRN (00:57)
[2017-10-05] MEDS: CHLORHEXIDINE GLUCONATE 2 % 1 PACK (2 CLOTHS) TOP SCH (04:00)
[2017-10-05 06:00] VITALS: BP 136/80; PULSE 61; RESP 18; TEMP 97.1; O2SAT 98
[2017-10-05] MEDS ORDERED: DEXAMETHASONE SOD PHOS 20 MG/5 ML VIAL IV PUSH ONE (07:30)
--- NOTE | 2017-10-05 07:32 | HHI.PR ---
Subjective Remarks bp up a bitstill Objective Vital Signs Date Time Temp Pulse Resp B/P (MAP) Pulse Ox O2 Delivery O2 Flow Rate FiO2 10/05/17 06:00 97.1 61 18 136/80 (98) 98 10/04/17 23:44 98.2 63 16 152/89 (110) 97 10/04/17 21:00 97.5 61 18 130/77 (94) 99 10/04/17 20:34 97.8 73 19 140/72 (94) 98 10/04/17 16:00 97.6 76 18 135/63 (87) 100 10/04/17 12:06 97.7 82 18 129/68 (88) 98 10/04/17 07:50 97.4 88 18 144/77 (99) 97 I/O 10/04/17 10/04/17 10/04/17 10/05/17 10/05/17 10/05/17 07:00 15:00 23:00 07:00 15:00 23:00 # Voids 2 3 3 # Bowel Movements 0 Result Diagram: 10/04/17 0544 10/04/17 0544 Objective Remarks ox3 alert 5/5 vff face sym wiggle left hand nl nl gait Assessment and Plan Assessment and Plan imp right ich acute the left frontal bleed may be old left venous angioma mrv ok lab ok we will repeat the mri in 8 weeks there is some enhancement of the middle of the r ich ow neurowise ok and will defer to nusu 10/04/17 echo nl no zazueta now but had zazueta and nv yest plan is to get bp to run 120/70 on bp meds and recheck mri and if stable copuld dc ?in am when bp lower? 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
[2017-10-05 07:51] VITALS: BP 139/77; PULSE 72; RESP 17; TEMP 97.8; O2SAT 99
[2017-10-05] MEDS: DOCUSATE SODIUM 50 MG/SENNA 8.6 MG TAB PO SCH (08:35)
[2017-10-05] MEDS: VALSARTAN 160 MG TAB PO SCH (08:35)
[2017-10-05] MEDS: FAMOTIDINE 20 MG TAB PO SCH (08:36)
[2017-10-05] MEDS: METOPROLOL TARTRATE 25 MG TAB PO SCH (08:36)
[2017-10-05 11:29] VITALS: BP 141/53; PULSE 82; RESP 17; TEMP 98.2; O2SAT 100
[2017-10-05] MEDS ORDERED: LOSA100T PO (14:53)
[2017-10-05] MEDS ORDERED: METO25TA3 PO (14:53)
[2017-10-05] MEDS ORDERED: HYDR25TA5 PO (14:55)
[2017-10-05] MEDS ORDERED: CLON0.1T PO (14:55)
--- NOTE | 2017-10-05 17:23 | HHI.DS ---
Discharge Summary Admission Date Sep 29, 2017 at 1:18 pm Discharge Date: Oct 05, 2017 Admitting Diagnosis Multifocal Intracranial Hemorrhage; Hemorrhagic Stroke (1) Intracranial hemorrhage ICD Code: I62.9 - Nontraumatic intracranial hemorrhage, unspecified Status: Acute Procedures none Brief History - From Admission 52-year-old lady with history of hypertension off meds for the last 2 months, now presents to [facility] emergency department complaining of weakness over the left hand and left leg. Per patient, she started feeling some numbness over the left upper extremity yesterday night before going to bed, and this morning upon awakening she felt increasing weakness over the left side, dropping things from her left hand and and having difficulty walking due to left leg weakness. In addition patient also complained of headache and some nausea but no vomiting. She denies any prior episodes, no blurry vision, no photophobia, no vomiting. No loss of consciousness. No prior history of stroke. In emergency department she underwent a CT head that showed multifocal parenchymal hemorrhages with the largest hematoma approximately 4 cm in the right hemisphere. Patient was transferred to [facility] for further care and to be evaluated by neurosurgery. She is currently resting in bed, headache is improved, left-sided weakness improved as well. CBC/BMP: 10/04/17 0544 10/04/17 0544 Significant Findings Laboratory Tests Test 10/03/17 07:58 10/04/17 05:44 Hemoglobin 15.5 GM/DL (11.6-15.3) 15.6 GM/DL (11.6-15.3) Total Protein 8.3 GM/DL (6.4-8.2) Potassium Level 3.2 MEQ/L (3.5-5.1) 3.4 MEQ/L (3.5-5.1) Neutrophils (%) (Auto) 74.2 % (16.0-70.0) Monocytes (%) (Auto) 8.5 % (0.0-8.0) Lymphocytes # (Auto) 0.7 TH/MM3 (1.0-4.8) Aspartate Amino Transf (AST/SGOT) 13 U/L (15-37) Estimat Glomerular Filtration Rate 80 ML/MIN (>89) PE at Discharge GENERAL: Well-nourished, well-developed patient. SKIN: Warm and dry. HEAD: Normocephalic. EYES: No scleral icterus. No injection or drainage. NECK: Supple, trachea midline. No JVD or lymphadenopathy. CARDIOVASCULAR: Regular rate and rhythm without murmurs, gallops, or rubs. RESPIRATORY: Breath sounds equal bilaterally. No accessory muscle use. GASTROINTESTINAL: Abdomen soft, non-tender, nondistended. EXTREMITIES: Calf is nontender to palpation, negative Homans sign, no edema, no erythema, no lumps, or knots, or cords. NEUROLOGICAL: Awake, alert, and oriented x 3. Speech is intact. Pupils equal round and reactive upper and lower extremities are 5 out of 5 strength. There is only a slight decrease on the left in her finger strength compared to her right. Hospital Course 52-year-old female who presented with a hemorrhagic stroke. The intracranial hemorrhage seem to be related to her poorly controlled blood pressure. She had been out of her [employer] for 2 months and admits that she was under a great amount of stress trying to deal with condominium in the [facility]. Despite a small area of hemorrhage she has minimal deficits. She is able to walk though she complains of numbness of her left lateral sole. Her hand has only minor discoordination. She is concerned about managing her blood pressure at home, but I took the time to write up parameters for treatment and provided her medications from the [facility] affordable list. Case management provider her with a blue card so she will be receiving PT and OT as an outpatient. She is stable for discharge. Pt Condition on Discharge: Good Discharge Disposition: Discharge Home Discharge Time: <= 30 minutes Discharge Instructions DIET: Follow Instructions for: Low Sodium Diet Activities you can perform: Weight Bearing as Jac Garza MD Oct 05, 2017 5:23 pm
[2017-10-06 09:15] LABS: METHYLMALONIC ACID 0.15 nmol/mL (<=0.40)
[2017-10-06 15:06] LABS: ANA PATTERN NUCLEOLAR
== END 2017-10-05 16:32 | disposition home or self-care (01) | DRG 66 ==
LOC: PHED 10:21 → PHEDA 13:18 → N03A 16:10 → N05A 10-01 15:20
PROVIDERS: ADMIT Hospitalist; ATTEND Hospitalist
DX: I61.1 Nontraumatic intracerebral hemorrhage in hemisphere, cortical (principal); I10 Essential (primary) hypertension; D18.02 Hemangioma of intracranial structures; E87.6 Hypokalemia; R20.0 Anesthesia of skin; R53.1 Weakness; Z82.3 Family history of stroke; Z82.49 Family history of ischemic heart disease and other diseases of the circulatory system
CPT/HCPCS: 70450; 70496; 70498; 70546; 70551; 70553; 71045; 80048; 80053; 80307; 81001; 82550; 82607; 82746; 83735; 83921; 84100; 84165; 84425; 84439; 84443; 84484; 84702; 85025; 85610; 85652; 85730; 86038; 86039; 86140; 86430; 86592; 87641; 93005; 93225; 93226; 93306; 94664; A9579; J1100; J1170; J1200; J2405; J3480; J7030; J7050; Q9967

== ENCOUNTER 2017-10-19 01:51 | Emergency (ER) | payer SELFPAY ==
[~2017-10-19 01:51] MED LIST: CLON0.1T PO; HYDR25TA5 PO; LOSA100T PO; METO25TA3 PO
[2017-10-19 02:19] VITALS: BP 177/89; PULSE 70; RESP 16; TEMP 97.6; O2SAT 98
--- NOTE | 2017-10-19 02:47 | RADRPT ---
EXAM DATE/TIME: 10/19/2017 01:58 [facility] COMPARISON: CT BRAIN W/O CONTRAST, September 30, 2017, 18:16. INDICATIONS : Cephalgia. History of intracerebral hemorrhage. RADIATION DOSE: 42.84 CTDIvol (mGy) MEDICAL HISTORY : Cerebrovascular disease. Hypertension. SURGICAL HISTORY : None. ENCOUNTER: Initial ACUITY: 1 day PAIN SCALE: 7/10 LOCATION: Right cranial TECHNIQUE: Multiple contiguous axial images were obtained of the head. Using automated exposure control and adj ustment of the mA and/or kV according to patient size, radiation dose was kept as low as reasonably a chievable to obtain optimal diagnostic quality images. DICOM format image data is available electro nically for review and comparison. FINDINGS: CEREBRUM: Decreasing hemorrhage in the right basal ganglia measuring 1.9 cm with adjacent vasogenic edema. No s ignificant midline shift The ventricles are normal for age. No evidence of midline shift, mass lesio n or acute infarction. No extra-axial fluid collections are seen. POSTERIOR FOSSA: The cerebellum and brainstem are intact. The 4th ventricle is midline. The cerebellopontine angle i s unremarkable. EXTRACRANIAL: The visualized portion of the orbits is intact. SKULL: The calvaria is intact. No evidence of skull fracture. CONCLUSION: 1. Decreasing right-sided hemorrhage with mass effect. 2. No significant midline shift. Amos Day MD on October 19, 2017 at 2:44 Board Certified Radiologist. This report was verified electronically.
--- NOTE | 2017-10-19 03:14 | PD ---
HPI Chief Complaint: Headache Time Seen by Provider: 01:56 Travel History International Travel<30 days: No Contact w/Intl Traveler<30days: No Traveled to known affect area: No History of Present Illness HPI The patient is a 52-year-old female that complains of a right parietal headache tonight in the same area that she had an intracranial bleed on 30 September of this year. She was admitted to [facility] on 30 September and has been discharged and has been doing well at home. The headache began after an argument with her at home. She denies any new focal neurologic change. There was no new trauma tonight. Her headache pain is a /10. PFSH Past Medical History Hypertension: Yes Medical other: Yes (hx: of stroke) Tetanus Vaccination: < 5 Years Influenza Vaccination: Yes ?: Not LMP: 10-04-17 Past Surgical History Cholecystectomy: Yes Social History Alcohol Use: Yes (SOCIAL) Tobacco Use: No Substance Use: No Allergies-Medications (Allergen,Severity, Reaction): Coded Allergies: Iodinated Contrast- Oral and IV Dye (Verified Allergy, Severe, Itching, 04/28) Reported Meds & Prescriptions Reported Meds & Active Scripts Active Clonidine (Clonidine HCl) 0.1 Mg Tab 0.1 Mg PO BID PRN Hydrochlorothiazide 25 Mg Tab 25 Mg PO DAILY 90 Days Metoprolol Tartrate 25 Mg Tab 25 Mg PO Q12HR 90 Days Losartan (Losartan Potassium) 100 Mg Tab 100 Mg PO DAILY 90 Days Review of Systems Except as stated in HPI: all other systems reviewed are Neg Physical Exam Narrative GENERAL: The patient is alert, oriented 3 and minimal apparent distress with her right parietal headache. Her vital signs show temperature 97.6 and blood pressure 177/89 but are otherwise normal. SKIN: Focused skin assessment warm/dry. No skin rash is seen. HEAD: Atraumatic. Normocephalic. EYES: Pupils equal and round. No scleral icterus. No injection or drainage. ENT: No nasal bleeding or discharge. Mucous membranes pink and moist. NECK: Trachea midline. No JVD. CARDIOVASCULAR: Regular rate and rhythm. No murmur appreciated. RESPIRATORY: No accessory muscle use. Clear to auscultation. Breath sounds equal bilaterally. GASTROINTESTINAL: Abdomen soft, non-tender, nondistended. Hepatic and splenic margins not palpable. MUSCULOSKELETAL: No obvious deformities. No clubbing. No cyanosis. No edema. NEUROLOGICAL: Awake and alert. No obvious cranial nerve deficits. Motor grossly within normal limits. Normal speech. PSYCHIATRIC: Appropriate mood and affect; insight and judgment normal. Data Data Last Documented VS Vital Signs Date Time Temp Pulse Resp B/P (MAP) Pulse Ox O2 Delivery O2 Flow Rate FiO2 10/19/17 02:21 Room Air 10/19/17 02:19 97.6 70 16 177/89 (118) [address] Brain W/O Iv Contrast(Rout) (10/19/17 01:56) MDM Medical Decision Making Medical Screen Exam Complete: Yes Emergency Medical Condition: Yes Medical Record Reviewed: Yes Interpretation(s) The CT of the brain shows decreasing right sided hemorrhage with no midline shift. Differential Diagnosis Increasing hemorrhage, decreasing hemorrhage, new intracranial bleed Narrative Course The patient has decreasing hemorrhage from the previous CT comparison on September 30. She should take plain Tylenol for pain and avoid aspirin and nonsteroidal anti-inflammatory medications. She should follow-up with her neurosurgeon. Diagnosis Primary Impression: Intracranial hemorrhage Additional Instructions: Follow-up with your neurosurgeon as scheduled. Take only plain Tylenol for pain. Med/Other Pt SpecificInfo: No Change to Meds Disposition: 01 DISCHARGE HOME Condition: Stable Rachid Kemp MD Oct 19, 2017 03:14
[2017-10-19 03:22] VITALS: BP 149/82
== END 2017-10-19 03:40 | disposition home or self-care (01) ==
LOC: PHED 01:51
DX: I62.9 Nontraumatic intracranial hemorrhage, unspecified (principal); I10 Essential (primary) hypertension
CPT/HCPCS: 70450; 99283